=== PATIENT | female | born 1965 | race Caucasian/White ===

== ENCOUNTER 2016-03-19 10:57 | Emergency (ER) | payer BC ==
[~2016-03-19] VITALS: Ht 162.6 cm; Wt 100.8 kg
[~2016-03-19 10:57] MED LIST: ACET-1256 PO; CLB200 PO; ESCI10TA17 PO; GLIM4TAB2 PO; IBUP-1050 PO; INSU1INJ15 SQ; LIRA18IN INJ; LOSA25TA18 PO; LPR50X PO; LPT20 PO; METF-382 PO; OMEP20CA9 PO
[2016-03-19] MEDS ORDERED: INSU1.2I SC (12:08)
[2016-03-19] MEDS ORDERED: NVLGI/PEN SC (12:08)
[2016-03-19] MEDS ORDERED: ASPIRIN 324 MG CHEW PO STA (12:13)
[2016-03-19 12:25] LABS: BASO % 0.5 %; BASO ABS # 0.06 K/uL (0-0.2); COMPLETE YES; HEMATOCRIT 34.4 % (37-47); IG% 0.3 %; LYMPH % 30.3 %; LYMPH ABS # 3.34 K/uL (1.2-3.4); MEAN CELL VOLUME 76.8 fL (80-100); MEAN CORPUSCULAR HEMOGLOBIN 24.3 pg (25-34); MEAN CORPUSCULAR HGB CONC 31.7 g/dl (32-36); MEAN PLATELET VOLUME 10.2 fL (7.4-10.4); MONO % 7.7 %; NEUT % 60.2 %; PLATELET COUNT 336 K/uL (130-400); RED BLOOD COUNT 4.48 M/uL (4.2-5.4); WHITE BLOOD COUNT 11.04 K/uL (4.8-10.8)
--- NOTE | 2016-03-19 12:27 | DIAGNOSTIC IMAGING REPORT ---
CHEST ONE VIEW PORTABLE CLINICAL HISTORY: cp dyspnea COMPARISON STUDY: 04/22/2015 FINDINGS: The bones soft tissues and hemidiaphragms are normal. The cardiomediastinal silhouette is normal. The lungs are clear. The pulmonary vasculature is normal. IMPRESSION: Negative chest. Electronically signed by: Cordell Mcgregor M.D. 03/19/2016 12:26 PM Dictated Date/Time: 03/19/2016 12:26 PM
[2016-03-19 12:36] LABS: PARTIAL THROMBOPLASTIN RATIO 0.9; PROTHROMBIN TIME (PATIENT) 10.9 SECONDS (9.0-12.0)
[2016-03-19 12:42] LABS: BLOOD UREA NITROGEN 7 mg/dl (7-18); CALCIUM 8.9 mg/dl (8.5-10.1); CARBON DIOXIDE 23 mmol/L (21-32); CREATININE 0.81 mg/dl (0.60-1.20); GLUCOSE 207 mg/dl (70-99)
[2016-03-19 12:47] LABS: CHLORIDE 108 mmol/L (98-107); POTASSIUM 3.9 mmol/L (3.5-5.1); SODIUM 142 mmol/L (136-145)
[2016-03-19 13:37] LABS: PREG INTERNAL NEGATIVE QC NEG CLEAR BACKGROUND; PREG INTERNAL POSITIVE QC POS CONTROL LINE
[2016-03-19] MEDS ORDERED: MoRPHine SULFATE 2 MG/ML CARP IV PRN (14:30)
[2016-03-19] MEDS ORDERED: DiphenhydrAMINE HCL 50 MG/ML VIAL IV PRN (14:30)
[2016-03-19] MEDS ORDERED: ZOLPIDEM TARTRATE 5 MG TAB PO PRN ×2 (14:30)
[2016-03-19] MEDS ORDERED: GLUCAGON FOR INJ 1 MG VIAL SQ PRN (14:30)
[2016-03-19] MEDS ORDERED: ACETAMINOPHEN 325 MG TAB PO PRN ×2 (14:30)
[2016-03-19] MEDS ORDERED: ONDANSETRON INJ 2 MG/ML 2 ML VIAL IV PRN (14:30)
[2016-03-19] MEDS ORDERED: DEXTROSE 50% 50 ML SYR IV PRN (14:30)
[2016-03-19] MEDS ORDERED: GLUCOSE 10 TABS/TUBE PO PRN (14:30)
[2016-03-19] MEDS ORDERED: GLUCOSE 40% GEL 15 GM TUBE PO PRN (14:30)
[2016-03-19] MEDS ORDERED: PROMETHAZINE HCL INJ 12.5 MG in SODIUM CHLORIDE 0.9% 50ML 50 ML IV PRN (14:30)
[2016-03-19] MEDS ORDERED: MAGNESIUM HYDROXIDE SUSP 30 ML UDC PO PRN (14:30)
[2016-03-19] MEDS ORDERED: LORAZEPAM 2 MG/ML 1 ML VIAL IV PRN (14:30)
[2016-03-19] MEDS ORDERED: ALUMINUM/MAGNESIUM/SIMETH (MAALOX MAX) 30 ML UDC PO PRN (14:30)
[2016-03-19] MEDS ORDERED: NITROGLYCERIN 0.4 MG SL PER TAB CHARGE SL PRN (14:30)
[2016-03-19] MEDS ORDERED: IV FLUIDS COMPLETED PRN (14:45)
[2016-03-19] MEDS ORDERED: LORAZEPAM INJ 0.5 MG in SYRINGE 0.75 ML IV PRN (15:15)
[2016-03-19 16:29] VITALS: Ht 162.6 cm; Wt 100.8 kg
[2016-03-19 16:33] VITALS: O2SAT 98
[2016-03-19 16:59] VITALS: BP 113/76; PULSE 64; TEMP 36.7
[2016-03-19 17:06] LABS: INFLUENZA A PCR Neg for Influ A (NEG); INFLUENZA B PCR Neg for Influ B (NEG)
[2016-03-19] MEDS: INSULIN ASPART 100 UNITS/ML 3 ML PEN SC SCH ×2 (17:51→21:00)
--- NOTE | 2016-03-19 19:09 | EMERGENCY ROOM VISIT NOTE ---
History Report prepared by Antoine: Martha Uribe Under the Supervision of: Dr. Ilia Carcamo M.D. First contact with patient: 11:59 Chief Complaint: DIZZY Stated Complaint: DIZZY Nursing Triage Summary: got dizzy and diaphoretic this am while getting ready for green party. now feels better, has not eaten yet today blood sugars have been elevated and has been put on new medications for this. states she has had a cold and sinus congestion for a month and woke with ear pain two nights ago. History of Present Illness The patient is a 50 year old female who presents to the Emergency Room with complaints of an episode of lightheadedness that occurred this morning. The patient states that she woke up early at around 5:30AM to get ready for a [employer] green party and her lightheadedness began then. She also was sweaty at that time. She did not have anything to eat prior to the start of her symptoms. She notes that her lightheadedness was worsening throughout the morning but is now improved. The patient notes that she has had intermittent lightheadedness recently, which mostly occurs when she stands up after bending over. She did not have any shortness of breath or chest pain when her symptoms began this morning. Upon arrival to the ED, she developed intermittent chest tightness and burning. She has had this before but usually attributes it to anxiety. Currently , she does not have any chest discomfort. 2 days ago, the patient woke up with sharp pain in her right ear which went away in seconds and has not returned since. The patient notes that she has chronic leg swelling. She currently has a lingering cough from a cold that she developed a month ago but denies other cold -like symptoms. She occasionally has some shortness of breath with going up and down stairs which is not a new issue for her. The patient is diabetic and her blood sugar this morning was in the 290s. Her sugars have been high recently and she notes that she was recently put on 2 new injections for her elevated blood sugars. The patient had an abnormal stress test over 10 years ago but had an unrevealing cardiac catheterization.She does not have a history of high cholesterol. She does have hypertension which she is treated for. Denies fever, black or bloody stools, urinary symptoms, or other complaints. The patient's father has history of heart disease, which began in his 40s and ultimately ended his life at age 68. Source of History: patient Onset: this morning Position: other (global) Quality: other (lightheadedness) Timing: other (episodic) Associated Symptoms: + chest pain (burning/tightness, intermittent), + cough , No fevers, No hematochezia, No melena, No urinary symptoms Note: Other symptoms: sweating Review of Systems See HPI for pertinent positives & negatives. A total of 10 systems reviewed and were otherwise negative. Past Medical & Surgical Medical Problems: (1) Diab Kitty Wo Compl, Type Ii Or Unspec Type, Not Uncntrld (2) Dizziness (3) Esophageal Reflux (4) Hypertension Nos (5) SVT (supraventricular tachycardia) (6) Uncontrolled blood glucose Surgical Problems: (1) History of delivery (2) History of cholecystectomy (3) History of tonsillectomy (4) History of tubal ligation (5) Status post breast reduction Family History Cancer Diabetes mellitus Gallbladder disease Heart disease Hypertension Social History Smoking Status: Never Smoker Marital Status: Housing Status: lives with family Occupation Status: employed Current/Historical Medications Scheduled Acetaminophen (Tylenol), 1,500 MG PO DIRECTED Atorvastatin (Atorvastatin Calcium), 20 MG PO QAM Celecoxib (Celebrex), 200 MG PO QAM Escitalopram (Lexapro), 10 MG PO DAILY Glimepiride (Glimepiride), 2 MG PO DAILY Insulin Aspart (Novolog Flexpen), 10 UNITS SC DAILY Insulin Glargine (Toujeo Solostar), 53 UNITS SC HS Losartan Potassium (Cozaar), 25 MG PO DAILY Metformin Ext Rel (Glucophage Ext Rel), 1,000 MG PO BID Metoprolol Tartrate (Metoprolol Tartrate), 50 MG PO BID Omeprazole (Prilosec), 20 MG PO DAILY Scheduled PRN Ibuprofen (Advil), 800 MG PO Q6 PRN for Pain Allergies Coded Allergies: No Known Allergies (Verified , 03/19/16) Physical Exam Vital Signs Date Time Temp Pulse Resp B/P Pulse Ox O2 Delivery O2 Flow Rate FiO2 03/19/16 13:51 85 20 129/73 99 Room Air 03/19/16 12:17 98 Room Air 03/19/16 12:05 75 20 157/97 73 Room Air 03/19/16 11:37 67 03/19/16 11:02 36.6 63 20 157/97 98 Room Air Physical Exam Constitutional: Vital signs reviewed. Eyes: Pupils are equal round reactive to light. Conjunctiva are noninjected. ENT: Pharynx is clear without erythema or exudate. Mucous membranes are moist. Neck supple without meningeal signs. Respiratory: Clear to auscultation bilaterally. Breath sounds are equal bilaterally. Cardiovascular: Regular rate and rhythm. No rubs or gallops. GI: Soft, nondistended and nontender. Bowel sounds are present. Musculoskeletal: No peripheral edema. No lower extremity tenderness. Integumentary: No cyanosis. Neurological: The patient is awake and alert. No focal deficits. Psychiatric: Normal affect. Medical Decision & Procedures ER Provider Diagnostic Interpretation: X-ray results as stated below per interpretation by me and the radiologist: CHEST ONE VIEW PORTABLE CLINICAL HISTORY: cp dyspnea COMPARISON STUDY: 04/22/2015 FINDINGS: The bones soft tissues and hemidiaphragms are normal. The cardiomediastinal silhouette is normal. The lungs are clear. The pulmonary vasculature is normal. IMPRESSION: Negative chest. Electronically signed by: Cordell Mcgregor M.D. 03/19/2016 12:26 PM Dictated Date/Time: 03/19/2016 12:26 PM Laboratory Results 03/19/16 12:10 Red Blood Count 4.48, Mean Corpuscular Volume 76.8, Mean Corpuscular Hemoglobin 24.3, Mean Corpuscular Hemoglobin Concent 31.7, Mean Platelet Volume 10.2, Neutrophils (%) (Auto) 60.2, Lymphocytes (%) (Auto) 30.3, Monocytes (%) (Auto) 7.7, Eosinophils (%) (Auto) 1.0, Basophils (%) (Auto) 0.5, Neutrophils # (Auto) 6.65, Lymphocytes # (Auto) 3.34, Monocytes # (Auto) 0.85, Eosinophils # (Auto) 0.11, Basophils # (Auto) 0.06 03/19/16 12:10 Test 03/19/16 12:10 03/19/16 12:25 03/19/16 12:40 03/19/16 14:20 White Blood Count 11.04 K/uL (4.8-10.8) Red Blood Count 4.48 M/uL (4.2-5.4) Hemoglobin 10.9 g/dL (12.0-16.0) Hematocrit 34.4 % (37-47) Mean Corpuscular Volume 76.8 fL (80-100) Mean Corpuscular Hemoglobin 24.3 pg (25-34) Mean Corpuscular Hemoglobin Concent 31.7 g/dl (32-36) Platelet Count 336 K/uL (130-400) Mean Platelet Volume 10.2 fL (7.4-10.4) Neutrophils (%) (Auto) 60.2 % Lymphocytes (%) (Auto) 30.3 % Monocytes (%) (Auto) 7.7 % Eosinophils (%) (Auto) 1.0 % Basophils (%) (Auto) 0.5 % Neutrophils # (Auto) 6.65 K/uL (1.4-6.5) Lymphocytes # (Auto) 3.34 K/uL (1.2-3.4) Monocytes # (Auto) 0.85 K/uL (0.11-0.59) Eosinophils # (Auto) 0.11 K/uL (0-0.5) Basophils # (Auto) 0.06 K/uL (0-0.2) RDW Standard Deviation 47.4 fL (36.4-46.3) RDW Coefficient of Variation 17.1 % (11.5-14.5) Immature Granulocyte % (Auto) 0.3 % Immature Granulocyte # (Auto) 0.03 K/uL (0.00-0.02) Prothrombin Time 10.9 SECONDS (9.0-12.0) Prothromb Time International Ratio 1.0 (0.9-1.1) Activated Partial Thromboplast Time 23.9 SECONDS (21.0-31.0) Partial Thromboplastin Ratio 0.9 Anion Gap 11.0 mmol/L (3-11) Est Creatinine Clear Calc Drug Dose 99.3 ml/min Estimated GFR () 99.5 Estimated GFR (Non- 85.9 BUN/Creatinine Ratio 8.0 (10-20) Calcium Level 8.9 mg/dl (8.5-10.1) Total Creatine Kinase 90 U/L (26-192) Creatine Kinase MB 1.8 ng/ml (0.5-3.6) Troponin I < 0.015 ng/ml (0-0.045) Bedside Troponin I 0.000 ng/ml (0-0.045) Human Chorionic Gonadotropin, Qual NEG (NEG) Influenza Type A (RT-PCR) Neg for Influ A (NEG) Influenza Type A Antigen Neg for Influ A (NEG) Influenza Type B Antigen Neg for Influ B (NEG) Influenza Type B (RT-PCR) Neg for Influ B (NEG) Test 03/19/16 14:26 Creatine Kinase MB Ratio (0-3.0) Laboratory results as reviewed by me. Medications Administered Medications (Trade) Dose Ordered Sig/Chadd Route Start Time Stop Time Status Last Admin Dose Admin Aspirin (Aspirin Chew) 324 mg NOW STAT PO 03/19/16 12:13 03/19/16 12:14 DC 03/19/16 13:15 324 MG ECG Indication: other (lightheadedness) Rate (beats per minute): 61 Rhythm: normal sinus Findings: no acute ischemic change, no ectopy ED Course 1203: The patient was evaluated in room C1. A complete history and physical exam was performed. 1213: Ordered Aspirin 324 mg PO. 1325: I reassessed the patient and updated her on results. I specifically talked to her about her anemia - she has not noticed any rectal bleeding or black stools or heavy periods. She states that she rarely gets menstrual periods. She says that she is still lightheaded and she has noticed over the past several months that she has been fatigued recently. I discussed the treatment plan and she was agreeable. 1348: I discussed the case with Dr. Pierre - [facility] Hospitalist. The patient will be evaluated for further management. Medical Decision This is a 50-year-old female who presents with chest pain and lightheadedness. Differential diagnosis includes unstable angina, VT, metabolic derangement, anemia, dehydration. I did perform a limited focused review of portions of the patient's old chart on the electronic medical record. The patient has had no recent pertinent visits to this hospital. I did evaluate the patient as noted above. The patient is presenting with an episode of significant lightheadedness associated with diaphoresis. She came in to the hospital and developed chest tightness and burning. She does have cardiac risk factors including hypertension, diabetes and a strong family history of heart disease. Currently she is chest pain-free. IV access was established. The patient was placed on a continuous environmental monitoring specialist. The patient was given aspirin. I did order and personally review the patient's 12- lead EKG and chest x-ray as described above. I did order and review the patient 's blood work as noted in the electronic medical record. She is anemic. She denies having any heavy periods and in fact says she has not had a period in a very long time. She also denies any rectal bleeding or melanotic stools. Troponin is negative. I did discuss the test results with the patient. She still feels slightly lightheaded but denies having any chest pain. I did recommend hospitalization for repeat cardiac enzymes and further workup. I did discuss case with the hospitalist and case technician. Consults Time Called: 1325 Consulting Physician: Dr. Ignacio Christianson [facility] Hospitalist Returned Call: 1348 I discussed the case with him. The patient will be evaluated for further management. Impression Primary Impression: Dizziness Additional Impressions: Acute chest pain Anemia Scribe Attestation The scribe's documentation has been prepared under my direct and personally reviewed by me in its entirety. I confirm that the note above accurately reflects all work, treatment, procedures, and medical decision making performed by me. Departure Information Dispostion Being Evaluated By Hospitalist Referrals Jonny Beal M.D. (PCP) Patient Instructions [facility] Problem Qualifiers Additional Impressions: Anemia Anemia type: unspecified type Qualified Codes: D64.9 - Anemia, unspecified
--- NOTE | 2016-03-19 19:34 | History and Physical ---
History & Physical Date & Time of Service: Mar 19, 2016 at 19:16 Chief Complaint: Dizziness, Uncontrolled Blood Pressure Primary Care Physician: Jonny Beal M.D. History of Present Illness Source: patient, spouse The patient is a 50-year-old female who presents to the emergency department with complaint of acute onset of lightheadedness and generalized sweats that gradually worsened during the morning and has been slowly improving since that time. The lightheadedness was also associated with orthostasis. When she arrived in emergency department she developed acute onset of chest pain and shortness of breath, both of which were new symptoms compared to her presenting symptoms early in the morning. She does notice shortness of breath occasionally going up and down steps. Her blood sugars have been more elevated into the 200s recently , whereas before they had been in the low to mid 100s. She does have a history of a negative stress test over 10 years ago, and had a negative cardiac catheterization at that time as well. Family history is significant for her father having heart disease in his 40s and he from heart disease at age 68. Past Medical/Surgical History Medical Problems: (1) Diab Kitty Wo Compl, Type Ii Or Unspec Type, Not Uncntrld Status: Chronic (2) Esophageal Reflux Status: Chronic (3) Hypertension Nos Status: Chronic (4) SVT (supraventricular tachycardia) Status: Resolved Surgical Problems: (1) History of cholecystectomy Status: Resolved (2) History of tonsillectomy Status: Resolved (3) History of tubal ligation Status: Resolved Family History Cancer Diabetes mellitus Gallbladder disease Heart disease Hypertension Social History Smoking Status: Never Smoker Smokeless Tobacco Use: No Alcohol Use: none Drug Use: none Marital Status: Housing status: lives with family Occupational Status: employed Immunizations History of Influenza Vaccine: N/A History of Tetanus Vaccine?: No History of Pneumococcal: No History of Hepatitis B Vaccine: No Multi-Drug Resistant Organisms History of MDRO: No Allergies Coded Allergies: No Known Allergies (Verified , 03/19/16) Home Medications Scheduled Acetaminophen (Tylenol), 1,500 MG PO DIRECTED Atorvastatin (Atorvastatin Calcium), 20 MG PO QAM Celecoxib (Celebrex), 200 MG PO QAM Escitalopram (Lexapro), 10 MG PO DAILY Glimepiride (Glimepiride), 2 MG PO DAILY Insulin Aspart (Novolog Flexpen), 10 UNITS SC DAILY Insulin Glargine (Toujeo Solostar), 53 UNITS SC HS Losartan Potassium (Cozaar), 25 MG PO DAILY Metformin Ext Rel (Glucophage Ext Rel), 1,000 MG PO BID Metoprolol Tartrate (Metoprolol Tartrate), 50 MG PO BID Omeprazole (Prilosec), 20 MG PO DAILY Scheduled PRN Ibuprofen (Advil), 800 MG PO Q6 PRN for Pain Review of Systems The patient denies lower extremity swelling, vision change, hearing change, sore throat, fevers, chills, sweats, weight change, fatigue, nausea, vomiting, abdominal pain, pelvic pain, blood in urine or stool, dysuria, urinary frequency or urgency, lightheadedness, dizziness, headache, memory loss, rash, abnormal bruising or bleeding, imbalance, focal or generalized weakness, numbness or tingling in arms or legs, arthralgias or myalgias, back or neck pain , night sweats. The review of systems is otherwise negative other than for that already noted above, and at least 10 systems have been reviewed. Physical Exam Vital Signs Date Time Temp Pulse Resp B/P Pulse Ox O2 Delivery O2 Flow Rate FiO2 03/19/16 16:59 36.7 64 16 113/76 03/19/16 16:33 98 Room Air 03/19/16 15:16 72 20 128/73 99 03/19/16 13:51 85 20 129/73 99 Room Air 03/19/16 12:17 98 Room Air 03/19/16 12:05 75 20 157/97 73 Room Air 03/19/16 11:37 67 03/19/16 11:02 36.6 63 20 157/97 98 Room Air The patient is awake, well-developed and adequately nourished, alert and oriented 3, normocephalic and atraumatic, lying in bed and in no acute distress. HEENT--PERRL, EOMI, mucous membranes and oropharynx dry. Neck--supple, no JVD or bruits, thyroid normal, trachea midline, no adenopathy. Heart--normal S1 and S2, no extra beats, no murmurs, rubs or gallops. Lungs--decreased breath sounds at the right base that improves after a forceful cough, no respiratory distress, no accessory muscle use. Abdomen--normal bowel sounds and soft, nontender and nondistended, no hernias or masses, no organomegaly. Extremities--no cyanosis, clubbing or edema. There are good distal pulses b/l. Dermatologic--normal skin turgor, normal color, warm and dry, no abnormal lymph nodes, no rash. Neurologic--cranial nerves II through XII grossly intact, motor and sensory examination normal. Rheumatologic--normal range of motion, nontender, muscles and joints. Psychiatric--normal affect. Diagnostics Laboratory Results Results Past 24 Hours Test 03/19/16 12:10 03/19/16 12:25 03/19/16 12:40 03/19/16 14:20 Range/Units White Blood Count 11.04 4.8-10.8 K/uL Red Blood Count 4.48 4.2-5.4 M/uL Hemoglobin 10.9 12.0-16.0 g/dL Hematocrit 34.4 37-47 % Mean Corpuscular Volume 76.8 80-100 fL Mean Corpuscular Hemoglobin 24.3 25-34 pg Mean Corpuscular Hemoglobin Concent 31.7 32-36 g/dl Platelet Count 336 130-400 K/uL Mean Platelet Volume 10.2 7.4-10.4 fL Neutrophils (%) (Auto) 60.2 % Lymphocytes (%) (Auto) 30.3 % Monocytes (%) (Auto) 7.7 % Eosinophils (%) (Auto) 1.0 % Basophils (%) (Auto) 0.5 % Neutrophils # (Auto) 6.65 1.4-6.5 K/uL Lymphocytes # (Auto) 3.34 1.2-3.4 K/uL Monocytes # (Auto) 0.85 0.11-0.59 K/uL Eosinophils # (Auto) 0.11 0-0.5 K/uL Basophils # (Auto) 0.06 0-0.2 K/uL RDW Standard Deviation 47.4 36.4-46.3 fL RDW Coefficient of Variation 17.1 11.5-14.5 % Immature Granulocyte % (Auto) 0.3 % Immature Granulocyte # (Auto) 0.03 0.00-0.02 K/uL Prothrombin Time 10.9 9.0-12.0 SECONDS Prothromb Time International Ratio 1.0 0.9-1.1 Activated Partial Thromboplast Time 23.9 21.0-31.0 SECONDS Partial Thromboplastin Ratio 0.9 Sodium Level 142 136-145 mmol/L Potassium Level 3.9 3.5-5.1 mmol/L Chloride Level 108 98-107 mmol/L Carbon Dioxide Level 23 21-32 mmol/L Anion Gap 11.0 3-11 mmol/L Blood Urea Nitrogen 7 7-18 mg/dl Creatinine 0.81 0.60-1.20 mg/dl Est Creatinine Clear Calc Drug Dose 99.3 ml/min Estimated GFR () 99.5 Estimated GFR (Non- 85.9 BUN/Creatinine Ratio 8.0 10-20 Random Glucose 207 70-99 mg/dl Calcium Level 8.9 8.5-10.1 mg/dl Total Creatine Kinase 90 26-192 U/L Creatine Kinase MB 1.8 0.5-3.6 ng/ml Creatine Kinase MB Ratio 2.0 0-3.0 Troponin I < 0.015 0-0.045 ng/ml Bedside Troponin I 0.000 0-0.045 ng/ml Human Chorionic Gonadotropin, Qual NEG NEG Influenza Type A (RT-PCR) Neg for Influ A NEG Influenza Type A Antigen Neg for Influ A NEG Influenza Type B Antigen Neg for Influ B NEG Influenza Type B (RT-PCR) Neg for Influ B NEG Test 03/19/16 14:26 03/19/16 17:30 Range/Units Creatine Kinase MB Ratio 0-3.0 Bedside Glucose 122 70-90 mg/dl Diagnostic Radiology Patient Name: JIMENA PEREZ Unit Number: [id number] Dictated: 03/19/161225 Transcribed: 03/19/161225 MS Printed Date/Time: [~ rep prt dt]/[~ rep prt tm] [~ rep ct labl] - [~ rep ct ivnm] [facility] [place] [address] Dictated: 03/19/161225 Transcribed: 03/19/16 1226 MS Printed Date/Time: [~ rep prt dt]/[~ rep prt tm] [~ rep ct labl] - [~ rep ct ivnm] [~ rep ct add3]] CHEST ONE VIEW PORTABLE CLINICAL HISTORY: cp dyspnea COMPARISON STUDY: 04/22/2015 FINDINGS: The bones soft tissues and hemidiaphragms are normal. The cardiomediastinal silhouette is normal. The lungs are clear. The pulmonary vasculature is normal. IMPRESSION: Negative chest. Electronically signed by: Cordell Mcgregor M.D. 03/19/2016 12:26 PM Dictated Date/Time: 03/19/2016 12:26 PM The status of this report is Signed. Draft = Not yet reviewed or approved by Radiologist. Signed = Reviewed and approved by Radiologist. <AttendingPhy></AttendingPhy> <FamilyPhy>Jonny Beal M.D.</FamilyPhy> < PrimaryPhy>Jonny Beal M.D.</PrimaryPhy> <UnitNumber>[id number]</UnitNumber> <VisitNumber>[id number]</VisitNumber> <PatientName>JIMENA PEREZ</PatientName> < DateOfBirth>1965</DateOfBirth> <Location>[facility]</Location> <ServiceDate>06/28</ServiceDate> <MNE>ESINDI</MNE> <OrderingPhy>Ilia Carcamo MD</ OrderingPhy> <OrderingPhyMNE>f rep ord dr rivera</OrderingPhyMNE> <DictatingPhyMNE> f rep dict dr rivera</DictatingPhyMNE> <CCListMNE>f rep ct miguel</CCListMNE> < AdmittingPhyMNE>f pt admit dr rivera</AdmittingPhyMNE> <AttendingPhyMNE>f pt attend dr rivera</AttendingPhyMNE> <ConsultingPhyMNE>f pt consult dr rivrea</ConsultingPhyMNE> <FamilyPhyMNE>f pt fam dr rivera</FamilyPhyMNE> <OtherPhyMNE>f pt other dr rivera</OtherPhyMNE> < PrimaryPhyMNE>f pt prim care dr rivera</PrimaryPhyMNE> <ReferringPhyMNE>f pt referring dr rivera</ReferringPhyMNE> EKG EKG shows normal sinus rhythm at 61 bpm, with ST flattening and T-wave inversion in lead 3. Impression Assessment and Plan Lightheadedness/SVT history/hypertension/Precordial chest pain/EKG change in lead 3--the patient will be admitted to the telemetry unit, for serial cardiac enzymes, cardiac rhythm monitoring, and a 2-D echocardiogram with Dopplers. If her workup is otherwise negative, she will need a stress echocardiogram prior to discharge. We will continue metoprolol tartrate 50 mg by mouth twice a day, and losartan 25 mg by mouth daily. Diabetes mellitus--the patient will be placed on Accu-Cheks before meals and at bedtime with NovoLog coverage. Continue glyburide 2 mg by mouth every morning, 2JO Vargas*53 units subcutaneous at bedtime. We will hold metformin 1000 mg by mouth twice a day. Hypercholesterolemia--continue atorvastatin 20 mg by mouth every morning. Depression--continue Lexapro 10 mg by mouth daily. She reports that she's been without this medication for one week, as her physician wanted her to be seen in the office first before the prescription can be renewed. It is possible that her symptoms of lightheadedness may be secondary to being off of this medication for one week. GERD--change omeprazole 20 mg by mouth daily to pantoprazole 40 mg by mouth daily. Pain management--continue Celebrex 200 mg by mouth every morning. Level of Care Telemetry Advanced Directives Existing Advance Directive: No Existing Living Will: No Existing Power of Chief Supply Chain Officer: No Resuscitation Status FULL RESUSCITATION VTE Prophylaxis VTE Risk Assessment Done? Y/N: Yes Risk Level: Low Given or contraindicated: SCD's Social Service Consult None Apply
[2016-03-19 19:58] VITALS: BP 118/78; PULSE 96; TEMP 36.9; O2SAT 98
[2016-03-19] MEDS ORDERED: INSULIN GLARGINE SOLOSTAR 100 UNITS/ML 3 ML PEN SC SCH (21:00)
[2016-03-19 21:13] VITALS: BP 104/69; PULSE 60
[2016-03-19] MEDS: METOPROLOL TARTRATE 50 MG TAB PO SCH (21:15)
[2016-03-19 23:09] LABS: CKMB/CK RATIO 1.7 (0-3.0)
[2016-03-19 23:34] VITALS: BP 103/61; PULSE 55; TEMP 36.6; O2SAT 96
[2016-03-20 04:00] VITALS: BP 122/79; PULSE 75; TEMP 36.7; O2SAT 97
[2016-03-20 06:58] LABS: BASO % 0.5 %; BASO ABS # 0.05 K/uL (0-0.2); COMPLETE YES; EOS % 2.3 %; HEMATOCRIT 32.6 % (37-47); IG% 0.3 %; LYMPH % 29.4 %; LYMPH ABS # 3.07 K/uL (1.2-3.4); MEAN CELL VOLUME 77.3 fL (80-100); MEAN CORPUSCULAR HEMOGLOBIN 23.9 pg (25-34); MEAN PLATELET VOLUME 9.9 fL (7.4-10.4); MONO % 8.3 %; NEUT % 59.2 %; PLATELET COUNT 296 K/uL (130-400); RED BLOOD COUNT 4.22 M/uL (4.2-5.4); WHITE BLOOD COUNT 10.44 K/uL (4.8-10.8)
[2016-03-20 07:13] VITALS: BP 99/63; PULSE 67; TEMP 36.7; O2SAT 96
[2016-03-20 07:24] LABS: BLOOD UREA NITROGEN 7 mg/dl (7-18); CALCIUM 8.3 mg/dl (8.5-10.1); CARBON DIOXIDE 24 mmol/L (21-32); CHLORIDE 107 mmol/L (98-107); CREATININE 0.74 mg/dl (0.60-1.20); GLUCOSE 171 mg/dl (70-99); MAGNESIUM 1.7 mg/dl (1.8-2.4); POTASSIUM 4.1 mmol/L (3.5-5.1); SODIUM 141 mmol/L (136-145)
[2016-03-20 07:29] LABS: CKMB/CK RATIO 1.6 (0-3.0)
[2016-03-20] MEDS ORDERED: GLIMEPIRIDE 2 MG TAB PO SCH (08:00)
[2016-03-20] MEDS: METOPROLOL TARTRATE 50 MG TAB PO SCH (08:01)
[2016-03-20] MEDS: INSULIN ASPART 100 UNITS/ML 3 ML PEN SC SCH ×2 (08:08→12:22)
[2016-03-20] MEDS ORDERED: MAGNESIUM OXIDE 400 MG TAB PO SCH (09:00)
[2016-03-20] MEDS ORDERED: LOSARTAN POTASSIUM 25 MG TAB PO SCH (09:00)
[2016-03-20] MEDS ORDERED: PANTOprazole SOD 40 MG TAB PO SCH (09:00)
[2016-03-20] MEDS ORDERED: ATORVASTATIN 20 MG TAB PO SCH (09:00)
[2016-03-20] MEDS ORDERED: ESCITALOPRAM OXALATE 10 MG TAB PO SCH (09:00)
[2016-03-20] MEDS ORDERED: CeleBREX 200 MG CAP PO SCH (09:00)
--- NOTE | 2016-03-20 12:20 | EXERCISE STRESS ECHO ---
*NOTICE TO RECEIVING [employer] This information is strictly Confidential and protected under [place] law. [place] law prohibits you from making any further disclosure of this information unless further disclosure is expressly permitted by the written consent of the person to whom it pertains or is authorized by law. A general authorization for the release of medical or other information is not sufficient for this purpose. Hospital accepts no responsibility if the information is made available to any other person, INCLUDING THE PATIENT. Interpretation Summary * Name: JIMENA PEREZ Study Date: 03/20/2016 10:17 AM BP: 133/80 mmHg * Patient Location: [facility]\S\N289\S\2 HR: 75 * : 1965 (M/d/yyyy) Gender: Female Height: 64 in * Age: 50 yrs Ethnicity: [place] Weight: 222 lb * Ordering Physician: Kendra Ludwig * Referring Physician: ZORA * Performed By: Destiny Zepeda RDCS * * Reason For Study: CHEST PAIN * BSA: 2.0 m2 * History: CHEST PAIN * -- Conclusions -- * Normal stress echocardiogram at 7 METS and a peak heart rate of 94% maximum predicted. * No ECG changes. * No exercise induced chest pain. * Baseline echocardiogram notes normal left ventricular systolic function. Procedure Details * ECHOEX, CPT #[id number] * A contrast injection of Definity was performed to improve assessment of LV function. * Contrast was injected into an intravenous site in the left arm. * One vial of Definity ultrasound contrast was diluted in normal saline to a total volume of 10 ml. A total of '4' ml of solution was administered during imaging. * Lot # [id number] of Definity utilized for procedure. * Expiration date MAR 01. * The attending nurse who injected the contrast agent was DWAYNE LEÓN RN. Left Ventricle * The left ventricle is normal in size. * There is borderline concentric left ventricular hypertrophy. * Ejection Fraction = 55-60%. * Left ventricular systolic function is normal. * Resting wall motion: Normal. Stress wall motion: Appropriate increase in Left ventricular systolic function and decrease in cavity size. No stress induced segmental wall motion abnormalities. Right Ventricle * The right ventricle is normal size. * The right ventricular systolic function is normal as assessed by tricuspid annular plane systolic excursion (TAPSE) (normal >1.5 cm). Atria * The left atrial size is normal. * Right atrial size is normal. * No ASD detected; PFO is not assessed. Mitral Valve * The mitral valve is grossly normal. * There is no mitral valve stenosis. * Significant mitral regurgitation is absent. Tricuspid Valve * The tricuspid valve is not well visualized, but is grossly normal. * There is no tricuspid stenosis. * Significant tricuspid regurgitation is absent. Aortic Valve * The aortic valve is normal in structure and function. * No hemodynamically significant valvular aortic stenosis. * There is no significant aortic regurgitation. Pulmonic Valve * The pulmonic valve is not well visualized. Great Vessels * The aortic root is normal size. * The pulmonary artery is not well visualized, but is probably normal size. Pericardium * There is no pericardial effusion. Stress Parameters * Normal baseline electrocardiogram. * Stress ECG: No ST changes. No arrhythmias. * Rest heart rate was '75' BPM. * Rest blood pressure was '133/80' * Maximum heart rate achieved was 162 bpm. * Maximum heart rate was 94 % of maximum age-predicted heart rate. * Maximum blood pressure was '199/77' * Total exercise time was '5:01' * Maximum exercise MET level achieved was '7.00' METS * Maximum treadmill speed was '2.50' miles per hour. * Maximum treadmill elevation was '12.00'% grade. * Exercise was terminated due to 'ACHIEVING TARGET HR' MMode 2D Measurements and Calculations IVSd 0.85 cm IVSs 1.2 cm LVIDd 4.4 cm LVIDs 3.3 cm LVPWd 0.77 cm LVPWs 1.4 cm IVS/LVPW 1.1 FS 25.4 % EDV(Teich) 88.5 ml ESV(Teich) 44.0 ml EF(Teich) 50.3 % EDV(cubed) 86.2 ml ESV(cubed) 35.8 ml EF(cubed) 58.5 % % IVS thick 45.0 % % LVPW thick 80.3 % LV mass(C)d 111.4 grams LV mass(C)dI 54.5 grams/m\S\2 LV mass(C)s 142.3 grams LV mass(C)sI 69.6 grams/m\S\2 SV(Teich) 44.5 ml SI(Teich) 21.8 ml/m\S\2 SV(cubed) 50.4 ml SI(cubed) 24.6 ml/m\S\2 Ao root diam 3.3 cm Ao root area 8.5 cm\S\2 LA dimension 3.2 cm LA/Ao 0.97 LVAd ap4 29.9 cm\S\2 LVLd ap4 8.8 cm EDV(MOD-sp4) 84.3 ml EDV(sp4-el) 86.4 ml LVAs ap4 17.4 cm\S\2 LVLs ap4 7.2 cm ESV(MOD-sp4) 34.3 ml ESV(sp4-el) 35.5 ml EF(MOD-sp4) 59.3 % EF(sp4-el) 58.9 % SV(MOD-sp4) 50.0 ml SI(MOD-sp4) 24.4 ml/m\S\2 SV(sp4-el) 50.9 ml SI(sp4-el) 24.9 ml/m\S\2 Doppler Measurements and Calculations MV E max adeline 82.5 cm/sec MV A max adeline 59.7 cm/sec MV E/A 1.4 MV dec time 0.18 sec Ao V2 max 156.7 cm/sec Ao max PG 9.8 mmHg Ao max PG (full) 2.5 mmHg LV V1 max PG 7.4 mmHg LV V1 max 135.7 cm/sec
[2016-03-20] MEDS ORDERED: ESCI10TA17 PO (12:34)
--- NOTE | 2016-03-20 12:53 | Discharge Instructions ---
Discharge Instructions Admission Reason for Admission: Dizziness, Uncontrolled Blood Pressure Discharge Discharge Diagnosis / Problem: Lightheadedness Discharge Goals Goal(s): Decrease discomfort, Improve function, Increase independence Activity Recommendations Activity Limitations: resume your previous activity . Instructions / Follow-Up Instructions / Follow-Up Lightheadedness/Chest Pain: - You chest pain you experienced does not appear to be related to your heart. Your cardiac enzymes were tested and are within normal limits which suggest that there was not damage placed on your heart. - You went through a stress test during admission that was normal and did not suggest problems with your heart. This test did not showed that your heart receives adequate oxygen with physical activity. You did not develop chest pain during the test. This test also shows that your heart pumps blood at a normal amount. - Possibly your symptoms could be related to not having your Lexapro as symptoms from stopping this medication includes dizziness, headache, anxiety, depression, mood swings, insomnia and so forth - You will be given a prescription for Lexapro 10 mg daily for two more weeks. Please follow-up with your family doctor to continue prescription. -- It is important to follow-up for this medication to monitor for any side effects as well as to ensure that the medication is the right fit for you -- This medication can cause suicidal thoughts and please call 911 if you begin to develop these thoughts. -- Common side effects include nausea, vomiting, upset stomach, and drowsiness Anemia: - You blood work shows that your hemoglobin (the part of the cell that carries oxygen) is low. It is currently at 10.1 and we would like to see it around 12 - It is not uncommon to have a lower hemoglobin however anemia can cause weakness, fatigue, shortness of breath, chest pain, and fast heart rate. - It is recommended that you follow-up with your family doctor to obtain iron studies - likely this is an iron deficiency anemia. - You may benefit from starting an iron supplementation. Follow-Up: - Please follow-up with your family doctor in 1 week Current Hospital Diet Patient's current hospital diet: Diabetes Type 1 Diet Discharge Diet Recommended Diet: Diabetes Type 1 Diet Procedures Procedures Performed: 1. Cardiac Stress Test with Echocardiogram and EKG Pending Studies Studies pending at discharge: no Medical Emergencies . Who to Call and When: Medical Emergencies: If at any time you feel your situation is an emergency, please call 911 immediately. . Non-Emergent Contact Non-Emergency issues call your: Primary Care Provider Call Non-Emergent contact if: you have a fever, your pain is not controlled, your pain is worsening, your pain is unusual for you, your pain is concerning you, you have any medication questions . . "Provider Documentation" section prepared by Kendra Ludwig. VTE Core Measure Inpt VTE Proph given/why not?: SCD's
[2016-03-20] MEDS ORDERED: PERFLUTREN LIPID MICROSPHERE (DEFINITY) IV ONE (13:06)
[2016-03-20 13:13] VITALS: BP 99/63; PULSE 67; TEMP 36.7; O2SAT 96
--- NOTE | 2016-03-20 14:01 | Discharge Summary ---
Discharge Summary Admission Date: Mar 19, 2016 at 14:26 Discharge Date: Mar 20, 2016 Discharge Disposition: Home Principal Diagnosis: Non-Cardiac Chest Pain Immunizations: Have You Had Influenza Vaccine: N/A History of Tetanus Vaccine?: No History of Pneumococcal: No History of Hepatitis B Vaccine: No Procedures: 1. Exercise Stress Test * Normal stress echocardiogram at 7 METS and a peak heart rate of 94% maximum predicted. * No ECG changes. * No exercise induced chest pain. * Baseline echocardiogram notes normal left ventricular systolic function. * EF 55-70% Medication Reconciliation Continued Medications: Acetaminophen (Tylenol) 500 Mg Tab 1500 MG PO DIRECTED, TAB Atorvastatin (Atorvastatin Calcium) 20 Mg Tab 20 MG PO QAM Celecoxib (Celebrex) 200 Mg Cap 200 MG PO QAM Escitalopram (Lexapro) 10 Mg Tab 10 MG PO DAILY for 14 Days, #14 TAB (This prescription has been renewed) Glimepiride (Glimepiride) 4 Mg Tab 2 MG PO DAILY for 90 Days, #45 TAB 3 Refills Ibuprofen (Advil) 200 Mg Tab 800 MG PO Q6 PRN for Pain, TAB Insulin Aspart (Novolog Flexpen) 100 Units/Ml Inj 10 UNITS SC DAILY dinner Insulin Glargine (Toujeo Solostar) 300 Unit/Ml Inj 53 UNITS SC HS Losartan Potassium (Cozaar) 25 Mg Tab 25 MG PO DAILY, TAB Metformin Ext Rel (Glucophage Ext Rel) 500 Mg Tab 1000 MG PO BID, TAB Metoprolol Tartrate (Metoprolol Tartrate) 50 Mg Tab 50 MG PO BID Omeprazole (Prilosec) 20 Mg Cap 20 MG PO DAILY, CAP Discharge Exam Review of Systems: Constitutional: + problem reported (lightheadedness resolved), No chills, No fever, No weakness Eyes: No worsening of vision ENT: No nasal symptoms, No sore throat, No trouble swallowing Respiratory: No cough, No shortness of breath Cardiovascular: No chest pain, No palpitations Abdomen: No constipation, No diarrhea, No nausea, No pain, No vomiting Musculoskeletal: No calf pain, No swelling Genitourinary - Female: No dysuria Neurologic: No balance problems, No numbness/tingling, No vertigo, No weakness Psychiatric: + anxiety Hematologic / Lymphatic: No abnormal bleeding/bruising, No clotting problems Integumentary: No rash Physical Exam: General Appearance: WD/WN, no apparent distress, + obese Eyes: PERRL, sclerae normal ENT: hearing grossly normal Neck: supple, no JVD, trachea midline Respiratory/Chest: lungs clear, normal breath sounds, no respiratory distress, no accessory muscle use Cardiovascular: regular rate, rhythm, no gallop, no murmur Abdomen / GI: normal bowel sounds, non tender, soft Extremities: no calf tenderness, no pedal edema Neurologic/Psychiatric: alert, oriented x 3 Skin: normal color, warm/dry, no rash Hospital Course ADMISSION: The patient is a 50-year-old female who presents to the emergency department with complaint of acute onset of lightheadedness and generalized sweats that gradually worsened during the morning and has been slowly improving since that time. The lightheadedness was also associated with orthostasis. When she arrived in emergency department she developed acute onset of chest pain and shortness of breath, both of which were new symptoms compared to her presenting symptoms early in the morning. She does notice shortness of breath occasionally going up and down steps. Her blood sugars have been more elevated into the 200s recently , whereas before they had been in the low to mid 100s. She does have a history of a negative stress test over 10 years ago, and had a negative cardiac catheterization at that time as well. Family history is significant for her father having heart disease in his 40s and he from heart disease at age 68. HOSPITAL COURSE: Ms. Watts was admitted to telemetry for rhythm monitoring and ACS rule out. Serial cardiac enzymes performed were negative and found to be < 0.015. EKG revealed sinus bradycardia with the only appreciated abnormality was an inverted T wave in Lead V1. She underwent exercise stress testing that was unremarkable for ischemic changes. She did not experience chest pain during the procedure and no EKG abnormalities appreciated. Suspicion is these symptoms may be just a transient findings or the possibility of abrupt cessation of Lexapro. Per patient she has been on Lexapro for years but ran out of the prescription approximately one week ago. She reports that she was instructed to follow-up with her PCP before further prescriptions can be given. She states she has not been compliant with office follow-up. Home medications were resumed as previously prescribed without alterations of dosages or new additional medications prescribed. She was discharged with a renewed prescription for Lexapro 10 mg daily x 14 days. Expressed the importance of following up with PCP about this medication to continue monitoring for effectiveness and any adverse side effects. Patient is mildly anemic on labs and instructed to discuss with with her PCP. Possible iron studies may be beneficial as it appears to be a mildly microcytic anemia and may benefit from iron supplementation. As anemia cause produce the symptoms she is complaining about the acute nature favors a possible Lexapro withdrawal effect. She is stable without acute complaints and is optimal for discharge home with PCP follow-up. Patient is interested in new PCP establishment here in [place] as she follows with the diabetes clinic near the hospital. Total Time Spent: Greater than 30 minutes This includes examination of the patient, discharge planning, medication reconciliation, and communication with other providers. Discharge Instructions Please refer to the electronic Patient Visit Report (Discharge Instructions) for additional information. Additional Copies To Jonny Beal M.D.
== END 2016-03-20 13:34 | disposition home or self-care (01) ==
LOC: ENRESERVDT → ENRESERVTM → EDBD 10:57 → C.EDC 10:58 → C.MED 14:26
PROVIDERS: ADMIT Hospitalist; ATTEND Internal Medicine
DX: R07.89 Other chest pain (principal); D50.9 Iron deficiency anemia, unspecified; R42 Dizziness and giddiness; R61 Generalized hyperhidrosis; R00.1 Bradycardia, unspecified; K21.9 Gastro-esophageal reflux disease without esophagitis; E11.9 Type 2 diabetes mellitus without complications; F32.9 Major depressive disorder, single episode, unspecified; E78.00 Pure hypercholesterolemia, unspecified; I10 Essential (primary) hypertension; Z79.4 Long term (current) use of insulin; Z90.49 Acquired absence of other specified parts of digestive tract; Z83.3 Family history of diabetes mellitus; Z82.49 Family history of ischemic heart disease and other diseases of the circulatory system

== ENCOUNTER → 2016-05-01 | Outpatient (CLI) | payer BC ==
[~2016-05-01] MED LIST changes: +INSU1.2I SC; -INSU1INJ15 SQ; -LIRA18IN INJ; +NVLGI/PEN SC
[2016-05-01 18:29] LABS: ESTIMATED AVERAGE GLUCOSE 232 mg/dl; HA1C FLAG Normal (Normal)
== END | disposition home or self-care (01) ==
LOC: C.LABPBG 13:07
PROVIDERS: ATTEND Neuromusculoskeletal Medicine & OMM
DX: E11.65 Type 2 diabetes mellitus with hyperglycemia (principal)

== ENCOUNTER → 2016-10-24 | Outpatient (CLI) | payer BC ==
--- NOTE | 2016-11-13 09:20 | CODING QUERY MEDICAL NECESSITY ---
CQSUPPORTING DIAGNOSIS NEEDED A supporting diagnosis is required for the test/procedure performed on this patient in order for us to be reimbursed by the patient's insurance. Please provide a supporting diagnosis for the following test/procedure listed below next to the test name along with your signature. *If there is no additional diagnosis for this patient that would support the following test/procedure please document that below next to the test/procedure. Test(s)/Procedure(s) that require a supporting diagnosis: DOS 10/24/16 VITAMIN D TEST ORDERED BY FRANCY PELLETIER Provider Signature: Date: Thank you Karen Carr Health Information Management Once completed, please kindly fax back to [phone] For questions please call [phone]
== END | disposition home or self-care (01) ==
LOC: C.LABPBG 07:44
PROVIDERS: ATTEND Physician Assistant
DX: R53.83 Other fatigue (principal); Z13.21 Encounter for screening for nutritional disorder

== ENCOUNTER → 2016-11-20 | Outpatient (CLI) | payer BC ==
[2016-11-20 12:00] LABS: ALT/SGPT 19 U/L (12-78); AST/SGOT 22 U/L (15-37); BLOOD UREA NITROGEN 11 mg/dl (7-18); BUN/CREATININE RATIO 14.2 (10-20); CALCIUM 8.7 mg/dl (8.5-10.1); CARBON DIOXIDE 20 mmol/L (21-32); CHLORIDE 109 mmol/L (98-107); CHOLESTEROL 170 mg/dl (0-200); CREATININE 0.77 mg/dl (0.60-1.20); GLUCOSE 243 mg/dl (70-99); POTASSIUM 3.9 mmol/L (3.5-5.1); SODIUM 139 mmol/L (136-145)
[2016-11-20 12:04] LABS: ALB/GLOB RATIO 0.7 (0.9-2); ALKALINE PHOSPHATASE 64 U/L (45-117); CHOLESTEROL/HDL RATIO 2.8; HDL CHOLESTEROL 61 mg/dl; LDL CHOLESTEROL CALCULATED 87 mg/dl; TRIGLYCERIDES 108 mg/dl (0-150); VERY LOW DENSITY LIPOPROT CALC 22 mg/dl
[2016-11-20 12:23] LABS: RATIO 26.1 mcg/mg (0-30.0)
[2016-11-20 12:35] LABS: ESTIMATED AVERAGE GLUCOSE 252 mg/dl; HA1C FLAG Normal (Normal)
== END | disposition home or self-care (01) ==
LOC: C.LABPBG 07:31
PROVIDERS: ATTEND Family Medicine
DX: E11.65 Type 2 diabetes mellitus with hyperglycemia (principal)

== ENCOUNTER → 2016-11-29 | Outpatient (CLI) | payer BC ==
[2016-11-29 12:23] LABS: HEMATOCRIT 34.8 % (37-47); MEAN CORPUSCULAR HEMOGLOBIN 23.3 pg (25-34); PLATELET COUNT 419 K/uL (130-400); RED BLOOD COUNT 4.64 M/uL (4.2-5.4); WHITE BLOOD COUNT 13.06 K/uL (4.8-10.8)
[2016-11-29 12:53] LABS: PREG INTERNAL NEGATIVE QC NEG CLEAR BACKGROUND; PREG INTERNAL POSITIVE QC POS CONTROL LINE
== END | disposition home or self-care (01) ==
LOC: C.LAB1850 11:17
PROVIDERS: ATTEND Physician Assistant
DX: N94.10 Unspecified dyspareunia (principal); N92.0 Excessive and frequent menstruation with regular cycle

== ENCOUNTER → 2016-11-29 | Outpatient (CLI) | payer BC ==
--- NOTE | 2016-11-29 12:30 | DIAGNOSTIC IMAGING REPORT ---
THYROID ULTRASONOGRAPHY CLINICAL HISTORY: R68.89 Throat [id number] COMPARISON STUDY: None FINDINGS: : The right with the thyroid measures 59 x 18 x 25 mm. Left lobe measures 36 x 9 x 11 mm. There is a multinodular gland present. On the right, there is a fairly cystic 23 x 18 x 13 mm nodule. There is a second cystic 21 x 11 x 16 mm right lobe nodule. There is a 10 x 10 x 6 mm cystic posterior thyroid nodule. There is an ill-defined upper pole solid nodule measuring 13 x 6 x 10 mm. This is relatively isoechoic. No calcifications are present within this nodule. On the left there is a predominantly cystic 9 x 7 x 5 mm nodule. IMPRESSION: Multinodular thyroid gland as described above. There are no nodules deemed to have particularly suspicious ultrasound characteristics. Electronically signed by: Nawaf Willis M.D. 11/29/2016 12:29 PM Dictated Date/Time: 11/29/2016 12:25 PM
== END | disposition home or self-care (01) ==
LOC: C.ULTR 11:42
PROVIDERS: ATTEND Family Medicine
DX: R68.89 Other general symptoms and signs (principal); E04.2 Nontoxic multinodular goiter

== ENCOUNTER → 2016-11-29 | Outpatient (CLI) | payer BC | END | disposition home or self-care (01) | LOC: C.PAPS 14:14 | PROVIDERS: ATTEND Physician Assistant | DX: Z12.4 Encounter for screening for malignant neoplasm of cervix (principal) ==

== ENCOUNTER → 2016-12-20 | Outpatient (CLI) | payer BC ==
[~2016-12-20] MED LIST changes: +GADAVIST IV PRN
--- NOTE | 2016-12-20 08:01 | DIAGNOSTIC IMAGING REPORT ---
BRAIN COMBO FOR IAC CLINICAL HISTORY: DIZZINESS *W/IAC'S* mental status change TECHNIQUE: Multiaxial MRI acquisition with attention to the internal artery canals COMPARISON STUDY: None FINDINGS: Signal characteristics the cerebellar as well as cerebral hemispheres are unremarkable. Ventricular system is midline. There is no evidence for abnormal postcontrast enhancement. Sella and parasellar region are unremarkable. Internal artery canals are symmetric. 7th and 8th nerves are unremarkable in terms of signal characteristics. No abnormal postcontrast enhancement. IMPRESSION: Normal study The above report was generated using voice recognition software. It may contain grammatical, syntax or spelling errors. Electronically signed by: Cordell Mcgregor M.D. 12/20/2016 8:00 AM Dictated Date/Time: 12/20/2016 7:51 AM
== END | disposition home or self-care (01) ==
DX: R42 Dizziness and giddiness (principal)

== ENCOUNTER → 2017-02-21 | Outpatient (CLI) | payer BC ==
[~2017-02-21] MED LIST changes: -GADAVIST IV PRN
[2017-02-21 12:56] LABS: BASO % 0.5 %; BASO ABS # 0.05 K/uL (0-0.2); EOS % 0.9 %; EOS ABS # 0.08 K/uL (0-0.5); HEMATOCRIT 33.8 % (37-47); HEMOGLOBIN 10.4 g/dL (12.0-16.0); IG# 0.02 K/uL (0.00-0.02); LYMPH % 22.5 %; LYMPH ABS # 2.09 K/uL (1.2-3.4); MEAN CELL VOLUME 76.8 fL (80-100); MEAN CORPUSCULAR HEMOGLOBIN 23.6 pg (25-34); MEAN CORPUSCULAR HGB CONC 30.8 g/dl (32-36); MEAN PLATELET VOLUME 9.8 fL (7.4-10.4); MONO ABS # 0.74 K/uL (0.11-0.59); NEUT % 67.9 %; NEUT ABS # 6.31 K/uL (1.4-6.5); PLATELET COUNT 355 K/uL (130-400); RED CELL DISTRIBUTION WIDTH CV 17.1 % (11.5-14.5); RED CELL DISTRIBUTION WIDTH SD 48.1 fL (36.4-46.3); WHITE BLOOD COUNT 9.29 K/uL (4.8-10.8)
[2017-02-21 13:21] LABS: HEMOGLOBIN A1C 9.5 % (4.5-5.6)
[2017-02-21 13:23] LABS: BLOOD UREA NITROGEN 8 mg/dl (7-18); CARBON DIOXIDE 24 mmol/L (21-32); CREATININE 0.68 mg/dl (0.60-1.20); GLUCOSE 202 mg/dl (70-99); POTASSIUM 3.9 mmol/L (3.5-5.1); SODIUM 136 mmol/L (136-145)
[2017-02-21 13:27] LABS: TRANSFERRIN 338 mg/dl (200-360)
== END | disposition home or self-care (01) ==
LOC: C.LABPBG 08:29
PROVIDERS: ATTEND Family Medicine
DX: E55.9 Vitamin D deficiency, unspecified (principal); E11.65 Type 2 diabetes mellitus with hyperglycemia; D64.9 Anemia, unspecified

== ENCOUNTER → 2017-06-20 | Outpatient (CLI) | payer BC ==
[2017-06-20 13:20] LABS: HEMATOCRIT 40.4 % (37-47); HEMOGLOBIN 13.6 g/dL (12.0-16.0); MEAN CELL VOLUME 87.8 fL (80-100); MEAN CORPUSCULAR HEMOGLOBIN 29.6 pg (25-34); MEAN CORPUSCULAR HGB CONC 33.7 g/dl (32-36); MEAN PLATELET VOLUME 10.5 fL (7.4-10.4); PLATELET COUNT 299 K/uL (130-400); RED CELL DISTRIBUTION WIDTH CV 14.3 % (11.5-14.5); RED CELL DISTRIBUTION WIDTH SD 45.9 fL (36.4-46.3); WHITE BLOOD COUNT 10.62 K/uL (4.8-10.8)
[2017-06-20 14:11] LABS: ALBUMIN 3.3 gm/dl (3.4-5.0); ALT/SGPT 24 U/L (12-78); AST/SGOT 22 U/L (15-37); BLOOD UREA NITROGEN 10 mg/dl (7-18); CALCIUM 8.6 mg/dl (8.5-10.1); CARBON DIOXIDE 21 mmol/L (21-32); CHOLESTEROL 149 mg/dl (0-200); CREATININE 0.73 mg/dl (0.60-1.20); GLUCOSE 171 mg/dl (70-99); SODIUM 136 mmol/L (136-145)
[2017-06-20 14:12] LABS: HEMOGLOBIN A1C 9.7 % (4.5-5.6)
[2017-06-20 14:16] LABS: ALKALINE PHOSPHATASE 62 U/L (45-117); LDL CHOLESTEROL CALCULATED 76 mg/dl; TOTAL PROTEIN 8.2 gm/dl (6.4-8.2)
== END | disposition home or self-care (01) ==
LOC: C.LABPBG 08:45
PROVIDERS: ATTEND Family Medicine
DX: I10 Essential (primary) hypertension (principal); E11.65 Type 2 diabetes mellitus with hyperglycemia; D50.9 Iron deficiency anemia, unspecified; M79.606 Pain in leg, unspecified

== ENCOUNTER 2020-11-08 10:15 | Observation (INO) ==
--- NOTE | 2020-11-08 12:31 | Emergency Department Note ---
History of Present Illness General Chief complaint: Chest Pain Stated complaint: CHEST PAINS,NAUSEA Time Seen by Provider: 11/08/20 12:16 Source: patient History of Present Illness Provider complaint: Chest pain Onset (ago): hour(s) Location: chest and left Radiation: non-radiation Pain Consistency: + intermittent Maximum Pain Intensity: 5 Quality: + other (Pressure) Relieved By: + none Exacerbated By: + none Associated symptoms: + diaphoresis and + nausea/vomiting; no cough, no fever/chills or no shortness of breath This is a 55-year-old female who presents with chest pain. The patient states it started at work at 830 today. 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 She was not exerting herself. She describes the pain as a pressure. It does not radiate to her arms, back or neck. It is associated with nausea and vomiting as well as diaphoresis. He also states that she had one episode of diarrhea when she came to the emergency department. She denies any shortness of breath. She has had no leg swelling or pain other than her arthritis. She denies any recent immobilization. She does state that she had a cardiac catheterization about 20 years ago for chest pain and it was unremarkable. She had the catheterization because she had an abnormal stress test. She does have a strong family history of cardiac disease with her brother having a heart attack in his 50s. He also had a pulmonary embolism but this was after a motorcycle accident. Her mother also had heart attacks and strokes in her 60s and had a pulmonary embolism as well but it is unclear if this was precipitated by anything. Her father had strokes and heart attacks in his 60s as well. The patient is not a smoker. She does have a history of hypertension, high cholesterol and diabetes. She denies any fever, cough or cold symptoms or abdominal pain. She does not take hormone replacement therapy. She has no urinary symptoms. Home Medications Medication Instructions Recorded Confirmed Type cholecalciferol (vitamin D3) 50 2,000 units PO DAILY #30 tab 02/19/19 11/08/20 Rx mcg (2,000 unit) tablet aspirin 81 mg tablet,delayed 81 mg PO DAILY #30 tab 12/02/19 11/08/20 Rx release (Adult Low Dose Aspirin) metoprolol tartrate 25 mg tablet 25 mg PO DAILY #90 tab 03/24/20 11/08/20 Rx exenatide microspheres 2 mg/0.85 2 mg SQ Q7D #13.2 ml 04/08/20 11/08/20 Rx mL subcutaneous auto-injector ([employer] [place]) celecoxib 200 mg capsule 200 mg PO DAILY #90 cap 08/04/20 11/08/20 Rx pantoprazole 40 mg tablet,delayed 40 mg PO DAILY #90 tab 08/30/20 11/08/20 Rx release venlafaxine 150 mg 150 mg PO DAILY #90 cap 08/30/20 11/08/20 Rx capsule,extended release 24 hr losartan 25 mg tablet 25 mg PO DAILY #90 tab 09/29/20 11/08/20 Rx pravastatin 10 mg tablet 10 mg PO DAILY #90 tab 09/29/20 11/08/20 Rx mecobalamin (vitamin B12) 5,000 5,000 mcg PO DAILY tab 10/05/20 11/08/20 History mcg disintegrating tablet metformin 500 mg tablet,extended 1,000 mg PO BID #180 tab 11/03/20 11/08/20 Rx release 24 hr ferrous sulfate 325 mg (65 mg 325 mg PO DAILY 11/08/20 11/08/20 History iron) tablet insulin aspart U-100 100 unit/mL 0 unit SQ DAILY 11/08/20 11/08/20 History subcutaneous solution (Novolog U-100 Insulin aspart) Allergies Allergy/AdvReac Type Severity Reaction Status Date / Time No Known Drug Allergies Allergy Verified 10/05/20 07:10 Past Med/Surg History Medical History (Updated 11/08/20 @ 16:48 by Ilia Carcamo MD) Anxiety and depression Arthritis Diabetes type 2, uncontrolled Dyslipidemia Gastroesophageal reflux disease Robin's thyroiditis Hypertension Hypothyroidism Iron deficiency anemia Multiple thyroid nodules Overweight SVT (supraventricular tachycardia) Type 2 diabetes mellitus, with long-term current use of insulin Vitamin D deficiency Surgical History History of cholecystectomy History of exploratory laparotomy History of tonsillectomy History of tubal ligation Hx of breast reduction, elective Hx of section Family History Father Cardiac disorder Cardiovascular disease Stroke Diabetes Hyperlipidemia Hypertension Mother , June 2020 d/t COVID illness Cardiovascular disease Stroke Diabetes Hyperlipidemia Hypertension Dementia Brother Hypertension Aunt Breast cancer Uncle Prostate cancer Aunt Dementia Uncle Alzheimer disease Denies family history of Ovarian cancer Colorectal cancer Social History Smoking Status: Never smoker Second Hand Exposure: No; Hx Alcohol Use: Yes Hx Substance Use: No Preferred Language: Icelandic Visual Impairment: No Limitations Hearing Ability: Normal Beliefs That Will Affect Care: None marital status: marital status details: two children Current Living Situation: Spouse current occupational status: employed current occupation: [employer] Feels Safe at Home: Yes Childhood Exposure to Second-Hand Smoke: No Diet Comment: regular caffeine: Yes during the past year weight has: remained stable Dental Care, Regularly: No Physical Activity Frequency: 1-2 Times per Week Seatbelt Use: always Sunscreen Use: Yes Review of Systems See HPI for pertinent positives & negatives. and A total of 10 systems reviewed and were otherwise negative Physical Exam Vital Signs Vital Signs - 24 hr 11/08/20 10:28 11/08/20 11:46 11/08/20 12:00 Temperature 36.7 C Temperature Source Temporal Artery Scan Pulse Rate 115 H 105 H 104 H Pulse Rate from SpO2 Sensor 106 H 104 H Respiratory Rate 18 22 26 H Blood Pressure 155/85 H 137/96 139/100 Blood Pressure Mean 108 109 113 Pulse Oximetry 97 95 94 Oxygen Delivery Method Room Air Sepsis Recent Fever Within 48 Hours No Sepsis New/Unexplained Change in Mental Status No Sepsis Action Taken by Nursing No Action Required 11/08/20 12:30 11/08/20 13:00 11/08/20 13:30 Temperature Temperature Source Pulse Rate 106 H 106 H 107 H Pulse Rate from SpO2 Sensor 106 H 106 H 108 H Respiratory Rate 22 23 24 Blood Pressure 126/82 145/94 H 140/84 Blood Pressure Mean 96 111 102 Pulse Oximetry 95 94 95 Oxygen Delivery Method Sepsis Recent Fever Within 48 Hours Sepsis New/Unexplained Change in Mental Status Sepsis Action Taken by Nursing 11/08/20 14:00 11/08/20 14:30 11/08/20 15:00 Temperature Temperature Source Pulse Rate 108 H 111 H 108 H Pulse Rate from SpO2 Sensor 109 H 109 H 108 H Respiratory Rate 21 13 Blood Pressure 117/92 146/94 H 149/93 H Blood Pressure Mean 100 111 111 Pulse Oximetry 95 96 96 Oxygen Delivery Method Sepsis Recent Fever Within 48 Hours Sepsis New/Unexplained Change in Mental Status Sepsis Action Taken by Nursing 11/08/20 15:30 11/08/20 16:00 Temperature Temperature Source Pulse Rate 108 H Pulse Rate from SpO2 Sensor 108 H Respiratory Rate Blood Pressure 153/92 H 160/118 H Blood Pressure Mean 112 132 Pulse Oximetry 97 Oxygen Delivery Method Sepsis Recent Fever Within 48 Hours Sepsis New/Unexplained Change in Mental Status Sepsis Action Taken by Nursing Constitutional: Vital signs reviewed. Eyes: Pupils are equal round reactive to light. Conjunctiva are noninjected. ENT: Pharynx is clear without erythema or exudate. Mucous membranes are moist. Neck supple without meningeal signs. Respiratory: Clear to auscultation bilaterally. Breath sounds are equal bilaterally. Cardiovascular: Tachycardic. Regular rhythm. Heart rate 108. GI: Soft, nondistended and nontender. Bowel sounds are present. Musculoskeletal: No peripheral edema. No lower extremity tenderness. Integumentary: No cyanosis. or jaundice. Neurological: The patient is awake and alert. No focal deficits. Psychiatric: Normal affect. Not anxious appearing. Course Administered Medications Discontinued Medications Al Hydrox/Mg Hydrox/Simethicone (Gi Cocktail Ed Use) 1 dose PO ONE ONE Stop: 11/08/20 15:31 Last Admin: 11/08/20 15:57 Dose: 1 dose Documented by: [id number] Famotidine (Famotidine 20mg/5ml Iv Push) 20 mg IV ONE ONE Stop: 11/08/20 15:31 Last Admin: 11/08/20 15:57 Dose: 20 mg Documented by: [id number] Sodium Chloride (Nss 1000ml) 1,000 mls @ 999 mls/hr IV .Q1H1M ONE Stop: 11/08/20 15:27 Last Infusion: 11/08/20 15:48 Dose: 0 mls/hr Documented by: [id number] Admin: 11/08/20 14:37 Dose: 999 mls/hr Documented by: [id number] Ioversol (Optiray 320 125ml) 119 ml IV ONCE ONE Stop: 11/08/20 13:42 Last Admin: 11/08/20 13:41 Dose: 119 ml Documented by: [id number] Medical Decision Making Differential Diagnosis OK, unstable angina, pulmonary embolism, GERD, pleurisy, anxiety, enteritis Medical Records Attestation: I reviewed the patient's medical records. I did perform a limited focused review of portions of the patient's old chart on the electronic medical record. The patient has had no recent pertinent visits to this hospital. Home Medications Current Medication List: was personally reviewed by me Laboratory Data Attestation: I reviewed the patient's lab results. Result diagrams: 11/08/20 11:48 11/08/20 11:48 Lab Results 11/08/20 11/08/20 11/08/20 Range/Units 11:48 11:48 11:48 WBC 19.95 H (4.8-10.8) K/uL RBC 5.14 (4.2-5.4) M/uL Hgb 16.1 H (12.0-16.0) g/dL Hct 48.0 H (37-47) % MCV 93.4 (80-100) fL MCH 31.3 (25-34) pg MCHC 33.5 (32-36) g/dL RDW Std Deviation 43.5 (36.4-46.3) fL RDW Coeff of Nataliia 12.7 (11.5-14.5) % Plt Count 273 (130-400) K/uL MPV 10.8 H (7.4-10.4) fL Immature Gran % (Auto) 0.4 % Neut % (Auto) 87.1 % Lymph % (Auto) 6.0 % [place] % (Auto) 5.8 % Eos % (Auto) 0.4 % Baso % (Auto) 0.3 % Neut # (Auto) 17.39 H (1.4-6.5) K/uL Lymph # (Auto) 1.19 L (1.2-3.4) K/uL [place] # (Auto) 1.16 H (0.11-0.59) K/uL Eos # (Auto) 0.08 (0-0.5) K/uL Baso # (Auto) 0.05 (0-0.2) K/uL Immature Gran # (Auto) 0.08 H (0.00-0.02) K/uL APTT 24.4 (21.0-31.0) Seconds PTT Ratio 0.9 D-Dimer 670 H* (0-500) ug/L FEU Sodium 137 (136-145) mmol/L Potassium 4.2 (3.5-5.1) mmol/L Chloride 106 (98-107) mmol/L Carbon Dioxide 23 (21-32) mmol/L Anion Gap 9.0 (3-11) BUN 15 (7-18) mg/dl Creatinine 0.89 (0.6-1.2) mg/dl Est Cr Clr Drug Dosing 86.8 ml/min Est GFR ( Amer) 85.8 ml/min Est GFR (Non-Af Amer) 74.0 ml/min BUN/Creatinine Ratio 17.0 (10-20) Glucose 258 H (70-99) mg/dl Calcium 8.9 (8.5-10.1) mg/dl Total Bilirubin 0.6 (0.2-1) mg/dl AST 47 H (15-37) U/L ALT 39 (12-78) U/L Alkaline Phosphatase 90 (45-117) U/L Troponin I < 0.015 (0-0.045) ng/ml Total Protein 8.3 H (6.4-8.2) gm/dl Albumin 3.4 (3.4-5.0) gm/dl Globulin 4.9 H (2.5-4.0) gm/dl Albumin/Globulin Ratio 0.7 L (0.9-2) Lipase 295 (73-393) U/L TSH (0.300-4.500) uIu/ml Urine Color Urine Appearance (Clear) Urine pH (4.5-7.5) Ur Specific [place] (1.000-1.030) Urine Protein (Negative) Urine Glucose (UA) (Negative) Urine Ketones (Negative) Urine Blood (Negative) Urine Nitrite (Negative) Urine Bilirubin (Negative) Urine Urobilinogen (Negative) Ur Leukocyte Esterase (Negative) Urine WBC (Auto) (0-5) /hpf Urine RBC (Auto) (0-4) /hpf U Hyaline Cast (Auto) (0-5) /lpf U Epithel Cells (Auto) (0-5) /lpf Urine Bacteria (Auto) (Negative) COVID-19 Eval Order SARS-CoV-2 (PCR) (Negative) 11/08/20 11/08/20 11/08/20 Range/Units 11:48 13:59 13:59 WBC (4.8-10.8) K/uL RBC (4.2-5.4) M/uL Hgb (12.0-16.0) g/dL Hct (37-47) % MCV (80-100) fL MCH (25-34) pg MCHC (32-36) g/dL RDW Std Deviation (36.4-46.3) fL RDW Coeff of Nataliia (11.5-14.5) % Plt Count (130-400) K/uL MPV (7.4-10.4) fL Immature Gran % (Auto) % Neut % (Auto) % Lymph % (Auto) % [place] % (Auto) % Eos % (Auto) % Baso % (Auto) % Neut # (Auto) (1.4-6.5) K/uL Lymph # (Auto) (1.2-3.4) K/uL [place] # (Auto) (0.11-0.59) K/uL Eos # (Auto) (0-0.5) K/uL Baso # (Auto) (0-0.2) K/uL Immature Gran # (Auto) (0.00-0.02) K/uL APTT (21.0-31.0) Seconds PTT Ratio D-Dimer (0-500) ug/L FEU Sodium (136-145) mmol/L Potassium (3.5-5.1) mmol/L Chloride (98-107) mmol/L Carbon Dioxide (21-32) mmol/L Anion Gap (3-11) BUN (7-18) mg/dl Creatinine (0.6-1.2) mg/dl Est Cr Clr Drug Dosing ml/min Est GFR ( Amer) ml/min Est GFR (Non-Af Amer) ml/min BUN/Creatinine Ratio (10-20) Glucose (70-99) mg/dl Calcium (8.5-10.1) mg/dl Total Bilirubin (0.2-1) mg/dl AST (15-37) U/L ALT (12-78) U/L Alkaline Phosphatase (45-117) U/L Troponin I (0-0.045) ng/ml Total Protein (6.4-8.2) gm/dl Albumin (3.4-5.0) gm/dl Globulin (2.5-4.0) gm/dl Albumin/Globulin Ratio (0.9-2) Lipase (73-393) U/L TSH 1.870 (0.300-4.500) uIu/ml Urine Color Urine Appearance (Clear) Urine pH (4.5-7.5) Ur Specific [place] (1.000-1.030) Urine Protein (Negative) Urine Glucose (UA) (Negative) Urine Ketones (Negative) Urine Blood (Negative) Urine Nitrite (Negative) Urine Bilirubin (Negative) Urine Urobilinogen (Negative) Ur Leukocyte Esterase (Negative) Urine WBC (Auto) (0-5) /hpf Urine RBC (Auto) (0-4) /hpf U Hyaline Cast (Auto) (0-5) /lpf U Epithel Cells (Auto) (0-5) /lpf Urine Bacteria (Auto) (Negative) COVID-19 Eval Order Covid19 at [facility] SARS-CoV-2 (PCR) NEGATIVE (Negative) 11/08/20 Range/Units 14:01 WBC (4.8-10.8) K/uL RBC (4.2-5.4) M/uL Hgb (12.0-16.0) g/dL Hct (37-47) % MCV (80-100) fL MCH (25-34) pg MCHC (32-36) g/dL RDW Std Deviation (36.4-46.3) fL RDW Coeff of Nataliia (11.5-14.5) % Plt Count (130-400) K/uL MPV (7.4-10.4) fL Immature Gran % (Auto) % Neut % (Auto) % Lymph % (Auto) % [place] % (Auto) % Eos % (Auto) % Baso % (Auto) % Neut # (Auto) (1.4-6.5) K/uL Lymph # (Auto) (1.2-3.4) K/uL [place] # (Auto) (0.11-0.59) K/uL Eos # (Auto) (0-0.5) K/uL Baso # (Auto) (0-0.2) K/uL Immature Gran # (Auto) (0.00-0.02) K/uL APTT (21.0-31.0) Seconds PTT Ratio D-Dimer (0-500) ug/L FEU Sodium (136-145) mmol/L Potassium (3.5-5.1) mmol/L Chloride (98-107) mmol/L Carbon Dioxide (21-32) mmol/L Anion Gap (3-11) BUN (7-18) mg/dl Creatinine (0.6-1.2) mg/dl Est Cr Clr Drug Dosing ml/min Est GFR ( Amer) ml/min Est GFR (Non-Af Amer) ml/min BUN/Creatinine Ratio (10-20) Glucose (70-99) mg/dl Calcium (8.5-10.1) mg/dl Total Bilirubin (0.2-1) mg/dl AST (15-37) U/L ALT (12-78) U/L Alkaline Phosphatase (45-117) U/L Troponin I (0-0.045) ng/ml Total Protein (6.4-8.2) gm/dl Albumin (3.4-5.0) gm/dl Globulin (2.5-4.0) gm/dl Albumin/Globulin Ratio (0.9-2) Lipase (73-393) U/L TSH (0.300-4.500) uIu/ml Urine Color Yellow Urine Appearance Clear (Clear) Urine pH 5.0 (4.5-7.5) Ur Specific [place] 1.040 H (1.000-1.030) Urine Protein Trace H (Negative) Urine Glucose (UA) 3+ H (Negative) Urine Ketones 3+ H (Negative) Urine Blood Negative (Negative) Urine Nitrite Negative (Negative) Urine Bilirubin Negative (Negative) Urine Urobilinogen Negative (Negative) Ur Leukocyte Esterase Trace H (Negative) Urine WBC (Auto) 10-30 H (0-5) /hpf Urine RBC (Auto) 0-4 (0-4) /hpf U Hyaline Cast (Auto) 1-5 (0-5) /lpf U Epithel Cells (Auto) 20-30 H (0-5) /lpf Urine Bacteria (Auto) Negative (Negative) COVID-19 Eval Order SARS-CoV-2 (PCR) (Negative) Imaging Data Radiologist's Impression: Chest X-Ray 11/08/20 12:26 SINGLE VIEW CHEST CLINICAL HISTORY: Atypical chest pain. FINDINGS: An AP, portable, upright chest radiograph is compared to study dated 03/19/2016 and correlated with chest CT dated 04/22/2015. The cardiomediastinal silhouette is unremarkable. There is mild bibasilar atelectasis. The lungs and pleural spaces are otherwise clear. No pneumothorax is seen. The bony thorax is grossly intact. IMPRESSION: No active disease in the chest. ACT 112: Negative or not required by law. Electronically signed by: Franky Mcdowell M.D. 11/08/2020 1:14 PM Chest CTA 11/08/20 13:29 CHEST CTA for PULMONARY ARTERIES CT DOSE: HISTORY: Atypical chest pain. TECHNIQUE: Multiaxial CT images of the chest were performed following the intravenous administration of contrast to evaluate the pulmonary arteries. Maximal intensity projection images were also obtained. A dose lowering technique was utilized adhering to the principles of ALARA. COMPARISON STUDY: Chest CTA 04/22/2015. FINDINGS: Normal caliber thoracic aorta with no evidence for dissection. No filling defects within the pulmonary arteries to suggest a pulmonary embolus. No mediastinal or hilar lymphadenopathy. Mild thickening at the distal esophagus. Mild hepatic steatosis. The visualized spleen and adrenal glands are unremarkable. The heart is normal in size. No pleural or pericardial effusions. No suspicious lytic or blastic osseous lesions. The central airways are patent. No focal lung consolidations to suggest pneumonia. IMPRESSION: 1. No evidence for pulmonary embolus. 2. [id number]-gu-wnlpocre circumferential thickening of the distal esophagus. This is nonspecific but could represent an esophagitis. Consider follow-up nonemergent endoscopy for further evaluation. ACT 112: Negative or not required by law. Electronically signed by: Maurizio Sahu M.D. 11/08/2020 2:00 PM Abdomen/Pelvis CT 11/08/20 13:30 CT SCAN OF THE ABDOMEN AND PELVIS WITH IV CONTRAST CLINICAL HISTORY: Generalized abdominal pain. Clinical concern for colitis. COMPARISON STUDY: Abdominal CT dated 11/05/2017. TECHNIQUE: Following the IV administration of 119 cc of Optiray 320, CT scan of the abdomen and pelvis is performed from the lung bases to the proximal femora. Images are reviewed in the axial, sagittal, and coronal planes. IV contrast was administered without complication. A dose lowering technique was utilized adhering to the principles of ALARA. CT DOSE: 2400.62 mGy.cm FINDINGS: Lung bases: The heart is normal in size and without pericardial effusion. The lung bases are clear. There is a small hiatal hernia. Liver: The contrast-enhanced liver is enlarged, measuring 20.1 cm in length. The liver demonstrates diffusely diminished attenuation consistent with hepatic steatosis. There is no intrahepatic biliary ductal dilatation. The hepatic veins and portal veins are patent. Gallbladder: Surgically absent noting clips in the gallbladder fossa. Spleen: Normal in size and attenuation. Pancreas: Unremarkable. Adrenal glands: Unremarkable. Kidneys: The contrast enhanced kidneys are normal in size and without hydronephrosis. The kidneys enhance symmetrically. Abdominal vasculature: The abdominal aorta is normal in course and caliber noting mild atherosclerotic calcification. Bowel: There is laxity of the ventral abdominal wall is diastases of the rectus musculature and protrusion of bowel loops. A ventral hernia contains a tiny knuckle of nonobstructed small bowel as seen on image #[id number]. There is no bowel obstruction. The small bowel loops are minimally distended and fluid-filled. There is also fluid within the right colon. No significant bowel wall thickening or surrounding inflammation is identified. The small bowel and colon are normal in course and caliber. The appendix is well-visualized and normal. Peritoneum: There is no intraperitoneal free air or abdominal ascites. Lymphadenopathy: None. Pelvic viscera: The bladder, uterus, and adnexa are normal as visualized noting small ovarian follicles. Numerous phleboliths are seen in the pelvis. Skeletal structures: There is mild lumbosacral spondylosis. No lytic or blastic lesions are seen. IMPRESSION: 1. There are mildly distended and fluid-filled loops of small bowel. Fluid is also seen within the right colon. This could be seen with a mild nonspecific enterocolitis and clinical correlation will be required. 2. There is no bowel wall thickening or surrounding inflammation. 3. A small ventral hernia contains a knuckle of nonobstructed small bowel. 4. Hepatomegaly and hepatic steatosis. 5. Additional findings as above. ACT 112: Negative or not required by law. Electronically signed by: Franky Mcdowell M.D. 11/08/2020 2:12 PM ECG Data Attestation: I personally reviewed and interpreted this ECG as follows: Indication: + chest pain Rate (beats per minute): 108 Rhythm: + sinus tachycardia ECG [place]: + Normal ECG ST segments: no ST elevation ECG Findings: no PVCs Comparison ECG Date: no prior available MDM Narrative I did evaluate the patient as noted above. The patient is presenting with chest discomfort. She has a very strong family history of cardiac disease with her brother having an OK in his 50s. She is presenting with chest pressure today while at work which has been intermittent all morning. Currently she is chest pain-free. IV access was established. I did place an order for continuous card iac monitoring. The monitor showed sinus tachycardia rate of 108 bpm. I did order and personally review the patient's 12-lead EKG as described above. She has tachycardia without acute ischemia. The patient does state that she has a history of tachycardia and SVT and takes metoprolol for this. She did not miss any doses. I did order and personally reviewed the images of the patient's chest x-ray as described above. There is no evidence of acute process. I did order a urine analysis. She has leukocyte esterase and WBCs without bacteria or nitrites. I did order and review the patient's blood work as noted in the electronic medical record. Her white blood cell count is significant elevated 19.95. She has hemoglobin of 16. Her electrolytes and LFTs are unremarkable other than a AST of 47. Her glucose is elevated to 58. Her troponin is negative. D-dimer is elevated at 670. I did discuss the test results with the patient. She denies having any fevers or any significant abdominal pain. She does state that she had another episode of diarrhea while in the emergency department. After discussion with the patient, I did order a CT of the abdomen and pelvis as well as a CT angiogram of the chest. I did review the images myself as well as the radiology report as described above. She has no evidence of pulmonary embolism. She has what appears to be some fluid in the colon and small bowel. There is no bowel wall thickening or surrounding inflammation. I did treat the patient with normal saline IV. I did discuss the test results with her. She remains slightly tachycardic here but is not having any chest discomfort. I did recommend hospitalization for IV hydration, further evaluation and repeat cardiac biomarkers. I did discuss the case with the case management assistant and the hospitalist was informed. COVID-19 testing was negative. Impression & Plan Acute chest pain, Leukocytosis, Vomiting and diarrhea Discharge Plan Visit Data Chief Complaint: Chest Pain Stated Complaint: CHEST PAINS,NAUSEA ED Provider: Ilia Carcamo Discharge Problem: Acute chest pain, Leukocytosis, Vomiting and diarrhea Patient Disposition: Being Evaluated by Hospitalist Forms Stand Alone Forms: [facility] Prescriptions Prescriptions: No Action cholecalciferol (vitamin D3) 2,000 unit tablet 2,000 units PO DAILY Qty: 30 RF: 0 metoprolol tartrate 25 mg tablet 25 mg PO DAILY Qty: 90 RF: 1 Bydureon BCise 2 mg/0.85 mL auto-injector 2 mg SQ Q7D Qty: 13.2 RF: 3 celecoxib 200 mg capsule 200 mg PO DAILY Qty: 90 RF: 1 pantoprazole 40 mg tablet,delayed release (DR/EC) 40 mg PO DAILY Qty: 90 RF: 1 venlafaxine 150 mg capsule,extended release 24hr 150 mg PO DAILY Qty: 90 RF: 1 pravastatin 10 mg tablet 10 mg PO DAILY Qty: 90 RF: 1 losartan 25 mg tablet 25 mg PO DAILY Qty: 90 RF: 2 metformin 500 mg tablet extended release 24 hr 1,000 mg PO BID Qty: 180 RF: 1 aspirin [Adult Low Dose Aspirin] 81 mg tablet,delayed release (DR/EC) 81 mg PO DAILY Qty: 30 RF: 2 mecobalamin (vitamin B12) 5,000 mcg tablet,disintegrating 5,000 mcg PO DAILY RF: 0 insulin aspart U-100 [Novolog U-100 Insulin aspart] 100 unit/mL solution 0 unit SQ DAILY RF: 0 ferrous sulfate 325 mg (65 mg iron) tablet 325 mg PO DAILY RF: 0 Referrals Referrals: Leslee Metz DO [Primary Care Provider] -
[2020-11-08 12:36] LABS: Basophils # (auto) 0.05 K/uL (0-0.2); Basophils % (auto) 0.3 %; Eosinophils # (auto) 0.08 K/uL (0-0.5); Eosinophils % (auto) 0.4 %; Hemoglobin 16.1 g/dL (12.0-16.0); Immature Granulocytes # (auto) 0.08 K/uL (0.00-0.02); Immature Granulocytes % (auto) 0.4 %; Lymphocytes # (auto) 1.19 K/uL (1.2-3.4); Mean Corpuscular Hemoglobin 31.3 pg (25-34); Mean Corpuscular Hgb Conc 33.5 g/dL (32-36); Mean Corpuscular Volume 93.4 fL (80-100); Mean Platelet Volume 10.8 fL (7.4-10.4); Monocytes # (auto) 1.16 K/uL (0.11-0.59); Monocytes % (auto) 5.8 %; Neutrophils # (auto) 17.39 K/uL (1.4-6.5); Neutrophils % (auto) 87.1 %; Platelet Count 273 K/uL (130-400); RDW Coefficient of Variation 12.7 % (11.5-14.5); RDW Standard Deviation 43.5 fL (36.4-46.3); Red Blood Count 5.14 M/uL (4.2-5.4); White Blood Count 19.95 K/uL (4.8-10.8)
[2020-11-08 12:44] LABS: Alanine Aminotransferase 39 U/L (12-78); Albumin Level 3.4 gm/dl (3.4-5.0); Aspartate Aminotransferase 47 U/L (15-37); Blood Urea Nitrogen 15 mg/dl (7-18); Calcium 8.9 mg/dl (8.5-10.1); Carbon Dioxide 23 mmol/L (21-32); Chloride 106 mmol/L (98-107); Creatinine Clr Calc Pharmacy 86.8 ml/min; Est GFR (African American) 85.8 ml/min; Glucose 258 mg/dl (70-99); Lipase 295 U/L (73-393); Potassium 4.2 mmol/L (3.5-5.1); Sodium 137 mmol/L (136-145)
[2020-11-08 12:48] LABS: Partial Thromboplastin Ratio 0.9; Partial Thromboplastin Time 24.4 Seconds (21.0-31.0)
[2020-11-08 12:49] LABS: Albumin Globulin Ratio 0.7 (0.9-2); Alkaline Phosphatase 90 U/L (45-117); Bilirubin,Total 0.6 mg/dl (0.2-1); Globulin 4.9 gm/dl (2.5-4.0); Total Protein 8.3 gm/dl (6.4-8.2); Troponin I < 0.015 ng/ml (0-0.045)
[2020-11-08 12:57] LABS: D Dimer 670 ug/L FEU (0-500)
--- NOTE | 2020-11-08 13:16 | XRay Report ---
SINGLE VIEW CHEST CLINICAL HISTORY: Atypical chest pain. FINDINGS: An AP, portable, upright chest radiograph is compared to study dated 03/19/2016 and correlate d with chest CT dated 04/22/2015. The cardiomediastinal silhouette is unremarkable. There is mild biba silar atelectasis. The lungs and pleural spaces are otherwise clear. No pneumothorax is seen. The bon y thorax is grossly intact. IMPRESSION: No active disease in the chest. ACT 112: Negative or not required by law. Electronically signed by: Franky Mcdowell M.D. 11/08/2020 1:14 PM
[2020-11-08] MEDS ORDERED: OPTIRAY 320 125ml IV ONE (13:41)
--- NOTE | 2020-11-08 14:01 | CT Scan Report ---
CHEST CTA for PULMONARY ARTERIES CT DOSE: HISTORY: Atypical chest pain. TECHNIQUE: Multiaxial CT images of the chest were performed following the intravenous administration of contrast to evaluate the pulmonary arteries. Maximal intensity projection images were also obtaine d. A dose lowering technique was utilized adhering to the principles of ALARA. COMPARISON STUDY: Chest CTA 04/22/2015. FINDINGS: Normal caliber thoracic aorta with no evidence for dissection. No filling defects within th e pulmonary arteries to suggest a pulmonary embolus. No mediastinal or hilar lymphadenopathy. Mild th ickening at the distal esophagus. Mild hepatic steatosis. The visualized spleen and adrenal glands ar e unremarkable. The heart is normal in size. No pleural or pericardial effusions. No suspicious lytic or blastic osseous lesions. The central airways are patent. No focal lung consolidations to suggest pneumonia. IMPRESSION: 1. No evidence for pulmonary embolus. 2. [id number]-[id number] circumferential thickening of the distal esophagus. This is nonspecific but could represent an esophagitis. Consider follow-up nonemergent endoscopy for further evaluation. ACT 112: Negative or not required by law. Electronically signed by: Maurizio Sahu M.D. 11/08/2020 2:00 PM
--- NOTE | 2020-11-08 14:13 | CT Scan Report ---
CT SCAN OF THE ABDOMEN AND PELVIS WITH IV CONTRAST CLINICAL HISTORY: Generalized abdominal pain. Clinical concern for colitis. COMPARISON STUDY: Abdominal CT dated 11/05/2017. TECHNIQUE: Following the IV administration of 119 cc of Optiray 320, CT scan of the abdomen and pelv is is performed from the lung bases to the proximal femora. Images are reviewed in the axial, sagitta l, and coronal planes. IV contrast was administered without complication. A dose lowering technique w as utilized adhering to the principles of ALARA. CT DOSE: 2400.62 mGy.cm FINDINGS: Lung bases: The heart is normal in size and without pericardial effusion. The lung bases are clear. T here is a small hiatal hernia. Liver: The contrast-enhanced liver is enlarged, measuring 20.1 cm in length. The liver demonstrates d iffusely diminished attenuation consistent with hepatic steatosis. There is no intrahepatic biliary d uctal dilatation. The hepatic veins and portal veins are patent. Gallbladder: Surgically absent noting clips in the gallbladder fossa. Spleen: Normal in size and attenuation. Pancreas: Unremarkable. Adrenal glands: Unremarkable. Kidneys: The contrast enhanced kidneys are normal in size and without hydronephrosis. The kidneys enh ance symmetrically. Abdominal vasculature: The abdominal aorta is normal in course and caliber noting mild atheroscleroti c calcification. Bowel: There is laxity of the ventral abdominal wall is diastases of the rectus musculature and protr usion of bowel loops. A ventral hernia contains a tiny knuckle of nonobstructed small bowel as seen o n image #284. There is no bowel obstruction. The small bowel loops are minimally distended and fluid- filled. There is also fluid within the right colon. No significant bowel wall thickening or surroundi ng inflammation is identified. The small bowel and colon are normal in course and caliber. The append ix is well-visualized and normal. Peritoneum: There is no intraperitoneal free air or abdominal ascites. Lymphadenopathy: None. Pelvic viscera: The bladder, uterus, and adnexa are normal as visualized noting small ovarian follicl es. Numerous phleboliths are seen in the pelvis. Skeletal structures: There is mild lumbosacral spondylosis. No lytic or blastic lesions are seen. IMPRESSION: 1. There are mildly distended and fluid-filled loops of small bowel. Fluid is also seen within the ri ght colon. This could be seen with a mild nonspecific enterocolitis and clinical correlation will be required. 2. There is no bowel wall thickening or surrounding inflammation. 3. A small ventral hernia contains a knuckle of nonobstructed small bowel. 4. Hepatomegaly and hepatic steatosis. 5. Additional findings as above. ACT 112: Negative or not required by law. Electronically signed by: Franky Mcdowell M.D. 11/08/2020 2:12 PM
[2020-11-08] MEDS ORDERED: SODIUM CHLORIDE 0.9% 1000ML 1,000 ML IV ONE ×2 (14:27→15:16)
--- NOTE | 2020-11-08 14:41 | History & Physical Report ---
Date of Service November 08, 2020 Assessment & Plan (1) Enterocolitis: Plan: C. diff PCR and stool culture pending Will defer antibiotics on admission as non-septic Repeat WBC in AM Ondansetron for nausea (2) Leucocytosis: Plan: Suspect from vomiting and enterocolitis as above. Repeat CBC in AM. Patient is not septic therefore will defer antibiotics on admission. Doubtful c. diff as affecting mostly small bowel but would start vancomycin if deteriorating of WBC increasing. (3) Esophageal thickening: Plan: Follow up EGD as outpatient recommended Treatment for GERD as below (4) Gastroesophageal reflux disease: Plan: Continue pantoprazole 40mg PO daily, additional famotidine 20mg IV now and GI cocktail. Consider addition of famotidine on discharge. (5) Chest pain: Plan: Serial troponins Monitor on telemetry Will defer dobutamine stress echo as this was previously abnormal with a normal cardiac catheterization therefore likeliness of another false positive test high given low likelihood pain is cardiac related. Suspect related to her GERD as above (6) Vaginal discharge: Plan: 2 weeks yellow vaginal discharge. Swab ordered for culture. Possible bacterial vaginosis. (7) Ketonuria: Plan: 1L NSS bolus given in ER, will give additional NSS bolus now then LR @ 150ml/hr overnight. (8) Type 2 diabetes mellitus, with long-term current use of insulin: Plan: Patient to manage her own glucose with insulin pump. BSG ACHS. HbA1C 9.0 in Mar, will repeat with AM labs (9) Hypertension: Plan: Continue her usual medications with metoprolol tartrate 25mg PO daily, losartan 25mg PO daily (10) Dyslipidemia: Plan: Continue pravastatin 10mg PO daily Plan: VTE Prophylaxis - None Diet - lactose intolerant due to current diarrhea, heart healthy, T2DM Disposition - observation status to med/tele Admission and Anticipated Discharge Date Admission Date: November 08, 2020 History of Present Illness Chief Complaint: Chest pain Primary Care Provider: DO Hope Llanes Mac is a 55 year old female who presents to the ER with sudden onset generalized illness today with chest pain. She reports feeling well when she woke up this morning around 5:30am although she has been having worsening heartburn for the last 2 days. Current symptoms started around 8:30am while at work. She felt sick to the stomach, nauseous, vomiting, loose brown stool, "w eirdness" and chest pain (although she points mainly to epigastric area). She denies any hematemesis, melena or blood in stool. No shortness of breath or loss of taste or smell. She had not eaten prior to going to work and no take out or unusual food yesterday. She is particularly concerned as she has a strong family history of cardiovascular disease with her father dying aged 66 from a heart attack but had problems since his 20s from cardiovascular disease and her mother had a stroke. Her brother has a history of pulmonary emboli. She reports having similar chest pains before but no diagnosis related to this. It is not worse on exertion. Last stress test "years ago". She has heartburn in addition but feels this chest pain is not like her usual heartburn. Heart cath - 15 years ago also for chest pain reportedly normal. She laos has ongoing palpitations although feels this is a seperate issue but never caught on monitor and not having these today. In the ER CT imaging showed thickening of her distal esophagus and findings consistent with enterocolitis. She was referred to medicine admission and ongoing management of chest pain and enterocolitis. Allergies Allergy/AdvReac Type Severity Reaction Status Date / Time No Known Drug Allergies Allergy Verified 10/05/20 07:10 Home Medications Medication Instructions Recorded Confirmed Type cholecalciferol (vitamin D3) 50 2,000 units PO DAILY #30 tab 02/19/19 11/08/20 Rx mcg (2,000 unit) tablet aspirin 81 mg tablet,delayed 81 mg PO DAILY #30 tab 12/02/19 11/08/20 Rx release (Adult Low Dose Aspirin) metoprolol tartrate 25 mg tablet 25 mg PO DAILY #90 tab 03/24/20 11/08/20 Rx exenatide microspheres 2 mg/0.85 2 mg SQ Q7D #13.2 ml 04/08/20 11/08/20 Rx mL subcutaneous auto-injector ([employer]) celecoxib 200 mg capsule 200 mg PO DAILY #90 cap 08/04/20 11/08/20 Rx pantoprazole 40 mg tablet,delayed 40 mg PO DAILY #90 tab 08/30/20 11/08/20 Rx release venlafaxine 150 mg 150 mg PO DAILY #90 cap 08/30/20 11/08/20 Rx capsule,extended release 24 hr losartan 25 mg tablet 25 mg PO DAILY #90 tab 09/29/20 11/08/20 Rx pravastatin 10 mg tablet 10 mg PO DAILY #90 tab 09/29/20 11/08/20 Rx mecobalamin (vitamin B12) 5,000 5,000 mcg PO DAILY tab 10/05/20 11/08/20 History mcg disintegrating tablet metformin 500 mg tablet,extended 1,000 mg PO BID #180 tab 11/03/20 11/08/20 Rx release 24 hr ferrous sulfate 325 mg (65 mg 325 mg PO DAILY 11/08/20 11/08/20 History iron) tablet insulin aspart U-100 100 unit/mL 0 unit SQ DAILY 11/08/20 11/08/20 History subcutaneous solution (Novolog U-100 Insulin aspart) Past Med/Surg History Medical History (Updated 11/09/20 @ 07:15 by Nilesh Gardner MD) Anxiety and depression Arthritis Diabetes type 2, uncontrolled Dyslipidemia Gastroesophageal reflux disease Robin's thyroiditis Hypertension Hypothyroidism Iron deficiency anemia Multiple thyroid nodules Overweight SVT (supraventricular tachycardia) Type 2 diabetes mellitus, with long-term current use of insulin Vitamin D deficiency Surgical History History of cholecystectomy History of exploratory laparotomy History of tonsillectomy History of tubal ligation Hx of breast reduction, elective Hx of section Family History Father Cardiac disorder Cardiovascular disease Stroke Diabetes Hyperlipidemia Hypertension Mother , June 2020 d/t COVID illness Cardiovascular disease Stroke Diabetes Hyperlipidemia Hypertension Dementia Brother Hypertension Aunt Breast cancer Uncle Prostate cancer Aunt Dementia Uncle Alzheimer disease Denies family history of Ovarian cancer Colorectal cancer Social History Smoking Status: Never smoker Second Hand Exposure: No; Do You Dip or Chew Tobacco: No; Tobacco Cessation Education Requested by Patient: No Hx Alcohol Use: Yes (Very rarely) Alcohol type: wine Hx Substance Use: No Preferred Language: [place] Communication Ability: Effective Visual Impairment: No Limitations Hearing Ability: Normal Blank Driller Required: No Beliefs That Will Affect Care: None marital status: marital status details: two children Current Living Situation: Spouse current occupational status: employed current occupation: [employer] Other Information That Helps Us Care for You: No Feels Safe at Home: Yes Safety Concerns: Feels Safe At This Time Childhood Exposure to Second-Hand Smoke: No Diet Comment: regular caffeine: Yes during the past year weight has: remained stable Dental Care, Regularly: No Physical Activity Frequency: 1-2 Times per Week Seatbelt Use: always Sunscreen Use: Yes Assistive Devices: None Review of Systems Review of Systems: All systems reviewed & are unremarkable except as noted in HPI & below Genitourinary: 2 weeks of yellow vaginal discharge Chronic pruritus Physical Exam Constitutional: WD/WN, vitals as above + morbidly obese; no acute distress Eyes: + anicteric sclerae; normal pupil size ENMT: external ear and nose normal, oropharynx normal Neck: trachea midline, no thyromegaly Respiratory: normal respiratory effort, lungs clear to auscultation Cardiovascular: RRR, no murmur, no edema Gastrointestinal (Abdomen): Inspection/Auscultation: + hypoactive bowel sounds; abdomen not distended Percussion/Palpation: + abdomen tender (epigastric) and abdomen soft; no guarding and abdomen not rigid Musculoskeletal: no cyanosis or clubbing, extremities motor strength 5/5 Skin: no rashes, warm and dry Neurologic: moves all extremities and awake; no focal motor deficits and not confused Psychiatric: A+Ox3, euthymic affect Lymphatic: no cervical or axillary lymphadenopathy Results & Data Results & Data ([facility]) Vital Signs (Past 12 Hours) Vital Signs Temp Pulse Resp BP Pulse Ox 11/08/20 14:00 108 H 117/92 95 11/08/20 13:30 107 H 24 140/84 95 11/08/20 13:00 106 H 23 145/94 H 94 11/08/20 12:30 106 H 22 126/82 95 11/08/20 12:00 104 H 26 H 139/100 94 11/08/20 11:46 105 H 22 137/96 95 11/08/20 10:28 36.7 C 115 H 18 155/85 H 97 Diagnostic Findings SINGLE VIEW CHEST CLINICAL HISTORY: Atypical chest pain. FINDINGS: An AP, portable, upright chest radiograph is compared to study dated 03/19/2016 and correlated with chest CT dated 04/22/2015. The cardiomediastinal silhouette is unremarkable. There is mild bibasilar atelectasis. The lungs and pleural spaces are otherwise clear. No pneumothorax is seen. The bony thorax is grossly intact. IMPRESSION: No active disease in the chest. CHEST CTA for PULMONARY ARTERIES CT DOSE: HISTORY: Atypical chest pain. TECHNIQUE: Multiaxial CT images of the chest were performed following the intravenous administration of contrast to evaluate the pulmonary arteries. Maximal intensity projection images were also obtained. A dose lowering technique was utilized adhering to the principles of ALARA. COMPARISON STUDY: Chest CTA 04/22/2015. FINDINGS: Normal caliber thoracic aorta with no evidence for dissection. No filling defects within the pulmonary arteries to suggest a pulmonary embolus. No mediastinal or hilar lymphadenopathy. Mild thickening at the distal esophagus. Mild hepatic steatosis. The visualized spleen and adrenal glands are unremarkable. The heart is normal in size. No pleural or pericardial effusions. No suspicious lytic or blastic osseous lesions. The central airways are patent. No focal lung consolidations to suggest pneumonia. IMPRESSION: 1. No evidence for pulmonary embolus. 2. [id number] circumferential thickening of the distal esophagus. This is nonspecific but could represent an esophagitis. Consider follow-up nonemergent endoscopy for further evaluation. CT SCAN OF THE ABDOMEN AND PELVIS WITH IV CONTRAST CLINICAL HISTORY: Generalized abdominal pain. Clinical concern for colitis. COMPARISON STUDY: Abdominal CT dated 11/05/2017. TECHNIQUE: Following the IV administration of 119 cc of Optiray 320, CT scan of the abdomen and pelvis is performed from the lung bases to the proximal femora. Images are reviewed in the axial, sagittal, and coronal planes. IV contrast was administered without complication. A dose lowering technique was utilized adhering to the principles of ALARA. CT DOSE: 2400.62 mGy.cm FINDINGS: Lung bases: The heart is normal in size and without pericardial effusion. The lung bases are clear. There is a small hiatal hernia. Liver: The contrast-enhanced liver is enlarged, measuring 20.1 cm in length. The liver demonstrates diffusely diminished attenuation consistent with hepatic steatosis. There is no intrahepatic biliary ductal dilatation. The hepatic veins and portal veins are patent. Gallbladder: Surgically absent noting clips in the gallbladder fossa. Spleen: Normal in size and attenuation. Pancreas: Unremarkable. Adrenal glands: Unremarkable. Kidneys: The contrast enhanced kidneys are normal in size and without hydronephrosis. The kidneys enhance symmetrically. Abdominal vasculature: The abdominal aorta is normal in course and caliber noting mild atherosclerotic calcification. Bowel: There is laxity of the ventral abdominal wall is diastases of the rectus musculature and protrusion of bowel loops. A ventral hernia contains a tiny knuckle of nonobstructed small bowel as seen on image #284. There is no bowel obstruction. The small bowel loops are minimally distended and fluid-filled. There is also fluid within the right colon. No significant bowel wall thickening or surrounding inflammation is identified. The small bowel and colon are normal in course and caliber. The appendix is well-visualized and normal. Peritoneum: There is no intraperitoneal free air or abdominal ascites. Lymphadenopathy: None. Pelvic viscera: The bladder, uterus, and adnexa are normal as visualized noting small ovarian follicles. Numerous phleboliths are seen in the pelvis. Skeletal structures: There is mild lumbosacral spondylosis. No lytic or blastic lesions are seen. IMPRESSION: 1. There are mildly distended and fluid-filled loops of small bowel. Fluid is also seen within the right colon. This could be seen with a mild nonspecific enterocolitis and clinical correlation will be required. 2. There is no bowel wall thickening or surrounding inflammation. 3. A small ventral hernia contains a knuckle of nonobstructed small bowel. 4. Hepatomegaly and hepatic steatosis. 5. Additional findings as above. Medications Administered ER Medications Given: NSS 1L bolus ECG Indication: chest pain Rate (beats per minute): 108 Rhythm: sinus tachycardia Findings: no acute ischemic change Comparison ECG Date: from (Mar 20, 2016) Change: the following changes noted (T wave flattening in inferior and anterior leads) Code Status & VTE Plan Code Status Full VTE Prophylaxis Plan VTE Prophylaxis will be ordered: No Reason for no VTE drug order: Treatment not indicated Reason for no VTE mechanical prophylaxis: Treatment not indicated PG Care Time/CCT Total # of Minutes Spent Total Time Spent with Patient: Total time spent is greater than 50% in coordination of care (as documented) at patient's floor/unit and/or counseling patient: Coding Level of Care Code INT OBSERVATION CARE 70M LVL 3 Diagnoses Type 2 diabetes mellitus, with long-term current use of insulin E11.9; Z79.4 Ketonuria R82.4 Hypertension I10 Dyslipidemia E78.5 Gastroesophageal reflux disease K21.9 Enterocolitis K52.9 Leucocytosis D72.829 Chest pain R07.9 Esophageal thickening K22.8 Vaginal discharge N89.8
[2020-11-08 14:57] LABS: Appearance Urine Clear (Clear); Bacteria Urine Automated Negative (Negative); Bilirubin Urine Negative (Negative); Blood Urine Negative (Negative); Color Urine Yellow; Epithelial Cell Urine Auto 20-30 /lpf (0-5); Glucose Urine UA 3+ (Negative); Ketones Urine 3+ (Negative); Leukocyte Esterase Urine Trace (Negative); Nitrite Urine Negative (Negative); Protein Urine Trace (Negative); RBC Urine Automated 0-4 /hpf (0-4); Urobilinogen Urine Negative (Negative)
[2020-11-08] MEDS ORDERED: ALUMINUM/MAGNESIUM SUSP 18 ML, LIDOCAINE VISCOUS 2% SOLN 6 ML, BARCODE IDENTIFIER 1 EA PO ONE (15:10)
[2020-11-08] MEDS ORDERED: FAMOTIDINE 20 MG in SYRINGE 3 ML IV STA (15:12)
[2020-11-08] MEDS ORDERED: FAMOTIDINE 20MG/5ML IV PUSH IV ONE (15:30)
[2020-11-08] MEDS ORDERED: GI COCKTAIL ED USE PO ONE (15:30)
[2020-11-08] MEDS ORDERED: ONDANSETRON INJ 2 MG/ML 2 ML VIAL IV PRN (18:22)
[2020-11-08] MEDS ORDERED: ALUMINUM/MAGNESIUM SUSP 30 ML UDC PO PRN (18:22)
[2020-11-08] MEDS ORDERED: DEXTROSE 50% 50 ML SYRINGE IV PRN (18:22)
[2020-11-08] MEDS ORDERED: GLUCAGON FOR INJ 1 MG VIAL SQ PRN (18:22)
[2020-11-08] MEDS ORDERED: INSULIN ASPART 100 UNITS/ML 3 ML PEN SC SCH (18:22)
[2020-11-08] MEDS ORDERED: GLUCOSE 40% GEL 15 GM TUBE PO PRN (18:22)
[2020-11-08] MEDS ORDERED: GLUCOSE 10 TABS/TUBE PO PRN (18:22)
[2020-11-08] MEDS ORDERED: CARBOHYDRATES FOR HYPOGLYCEMIA PO PRN (18:22)
[2020-11-08] MEDS ORDERED: INSULIN ASPART 100 UNITS/ML VIAL SC PRN (19:30)
[2020-11-08] MEDS: ACETAMINOPHEN 325 MG TAB PO PRN (21:46)
[2020-11-08] MEDS: NovoLOG INSULIN PUMP SCH (21:47)
[2020-11-08] MEDS: LACTATED RINGER'S 1,000 ML IV SCH (21:47)
[2020-11-09 07:14] LABS: Basophils # (auto) 0.04 K/uL (0-0.2); Basophils % (auto) 0.4 %; Eosinophils # (auto) 0.02 K/uL (0-0.5); Eosinophils % (auto) 0.2 %; Hematocrit (blood only) 44.8 % (37-47); Hemoglobin 14.8 g/dL (12.0-16.0); Immature Granulocytes # (auto) 0.02 K/uL (0.00-0.02); Immature Granulocytes % (auto) 0.2 %; Lymphocytes # (auto) 1.29 K/uL (1.2-3.4); Lymphocytes % (auto) 11.4 %; Mean Corpuscular Hemoglobin 31.5 pg (25-34); Mean Corpuscular Volume 95.3 fL (80-100); Mean Platelet Volume 10.5 fL (7.4-10.4); Monocytes # (auto) 0.85 K/uL (0.11-0.59); Monocytes % (auto) 7.5 %; Neutrophils # (auto) 9.05 K/uL (1.4-6.5); Neutrophils % (auto) 80.3 %; Platelet Count 263 K/uL (130-400); RDW Standard Deviation 45.5 fL (36.4-46.3); White Blood Count 11.27 K/uL (4.8-10.8)
[2020-11-09] MEDS: ACETAMINOPHEN 325 MG TAB PO PRN (07:32)
[2020-11-09 07:38] LABS: Albumin Level 2.9 gm/dl (3.4-5.0); BUN Creatinine Ratio 12.8 (10-20); Creatinine Clr Calc Pharmacy 89.8 ml/min; Est GFR (African American) 89.4 ml/min; Est GFR (Non-African American) 77.1 ml/min; Potassium 3.6 mmol/L (3.5-5.1)
[2020-11-09 07:41] LABS: Albumin Globulin Ratio 0.6 (0.9-2); Bilirubin,Total 0.6 mg/dl (0.2-1); Globulin 4.6 gm/dl (2.5-4.0); Total Protein 7.5 gm/dl (6.4-8.2)
[2020-11-09 08:54] LABS: Estimated Average Glucose 229 mg/dl; Hemoglobin A1C 9.6 % (4.5-5.6)
[2020-11-09] MEDS: NovoLOG INSULIN PUMP SCH ×2 (08:59→12:32)
[2020-11-09] MEDS ORDERED: CeleBREX 200 MG CAP PO SCH (09:00)
[2020-11-09] MEDS ORDERED: PRAVASTATIN SOD 10 MG TAB PO SCH (09:00)
[2020-11-09] MEDS ORDERED: CHOLECALCIFEROL 1,000 UNITS 25 MCG TAB PO SCH (09:00)
[2020-11-09] MEDS ORDERED: VENLAFAXINE HCL XR 150 MG CAPXR PO SCH (09:00)
[2020-11-09] MEDS ORDERED: METOPROLOL TARTRATE 25 MG TAB PO SCH (09:00)
[2020-11-09] MEDS ORDERED: ASPIRIN 81 MG ECTAB PO SCH (09:00)
[2020-11-09] MEDS ORDERED: PANTOprazole 40 MG TAB PO SCH (09:00)
[2020-11-09] MEDS ORDERED: LOSARTAN POTASSIUM 25 MG TAB PO SCH (09:00)
[2020-11-09] MEDS ORDERED: FERROUS SULFATE 325 MG TAB PO SCH (09:00)
[2020-11-09] MEDS ORDERED: CYANOCOBALAMIN (VITAMIN B-12) 2,500 MCG TAB.SUBL SL SCH (09:00)
[2020-11-09] MEDS: LACTATED RINGER'S 1,000 ML IV SCH ×2 (09:12→09:13)
--- NOTE | 2020-11-09 15:55 | Discharge Summary ---
Date of Service November 09, 2020 Admission HPI Per Admitting Provider Hope Watts is a 55 year old female who presents to the ER with sudden onset generalized illness today with chest pain. She reports feeling well when she woke up this morning around 5:30am although she has been having worsening heartburn for the last 2 days. Current symptoms started around 8:30am while at work. She felt sick to the stomach, nauseous, vomiting, loose brown stool, "weirdness" and chest pain (although she points mainly to epigastric area). She denies any hematemesis, melena or blood in stool. No shortness of breath or loss of taste or smell. She had not eaten prior to going to work and no take out or unusual food yesterday. She is particularly concerned as she has a strong family history of cardiovascular disease with her father dying aged 66 from a heart attack but had problems since his 20s from cardiovascular disease and her mother had a stroke. Her brother has a history of pulmonary emboli. She reports having similar chest pains before but no diagnosis related to this. It is not worse on exertion. Last stress test "years ago". She has heartburn in addition but feels this chest pain is not like her usual heartburn. Heart cath - 15 years ago also for chest pain reportedly normal. She laos has ongoing palpitations although feels this is a seperate issue but never caught on monitor and not having these today. In the ER CT imaging showed thickening of her distal esophagus and findings consistent with enterocolitis. She was referred to medicine admission and ongoing management of chest pain and enterocolitis. Admission Exam Per Admitting Provider Constitutional: WD/WN, vitals as above + morbidly obese; no acute distress Eyes: + anicteric sclerae; normal pupil size ENMT: external ear and nose normal, oropharynx normal Neck: trachea midline, no thyromegaly Respiratory: normal respiratory effort, lungs clear to auscultation Cardiovascular: RRR, no murmur, no edema Gastrointestinal (Abdomen): Inspection/Auscultation: + hypoactive bowel sounds; abdomen not distended Percussion/Palpation: + abdomen tender (epigastric) and abdomen soft; no guarding and abdomen not rigid Musculoskeletal: no cyanosis or clubbing, extremities motor strength 5/5 Skin: no rashes, warm and dry Neurologic: moves all extremities and awake; no focal motor deficits and not confused Psychiatric: A+Ox3, euthymic affect Lymphatic: no cervical or axillary lymphadenopathy Principal Diagnosis Enterocolitis Esophageal Thickening Discharge Exam General: A&Ox3. NAD. Cooperative. HEENT: Atraumatic, normocephalic. Pulm: CTAB A&P. -wheezes, -rales, -rhonchi. Symmetrical chest rise. No increase work of breathing. No respiratory distress. Cardiac: RRR, -mrg. Radial pulses intact and symmetrical. Abdominal: Nontender, nondistended, soft. BS present. No guarding, no rigidity. RUE: 5/5 Elbow flexion/extension 5/5 cell maker strength, finger flexion/extension, interosseus LUE: 5/5 Elbow flexion/extension 5/5 cell maker strength, finger flexion/extension, interosseus RLE: 5/5 to hip flexion, ankle dorsiflexion/plantarflexion LLE: 5/5 to hip flexion, ankle dorsiflexion/plantarflexion SENSORY: Normal to touch in upper and lower extremities without deficit or asymmetry Discharge Data Allergies Allergy/AdvReac Type Severity Reaction Status Date / Time No Known Drug Allergies Allergy Verified 10/05/20 07:10 Consultations 11/08/20 14:27 ED Decision to Admit Stat Ordered Studies 11/08/20 13:29 CT angio chest PE protocol Stat IMPRESSION: 1. No evidence for pulmonary embolus. 2. [id number] circumferential thickening of the distal esophagus. This is nonspecific but could represent an esophagitis. Consider follow-up nonemergent endoscopy for further evaluation. 11/08/20 13:30 CT abd pelvis IV con only Stat IMPRESSION: 1. There are mildly distended and fluid-filled loops of small bowel. Fluid is also seen within the right colon. This could be seen with a mild nonspecific enterocolitis and clinical correlation will be required. 2. There is no bowel wall thickening or surrounding inflammation. 3. A small ventral hernia contains a knuckle of nonobstructed small bowel. 4. Hepatomegaly and hepatic steatosis. 5. Additional findings as above. Diabetes Follow up Diabetes Follow-up Needed for HgbA1c >9% Hospital Course (1) Enterocolitis: Hope is a 55yo F who presented with diarrhea and chest pain and who was found to have enterocolitis with clinical improvement overnight. To Do As Outpatient: 1. Repeat CBC to follow for normalization 2. Outpatient EGD for esophageal thickening, chronic GERD 3. Elective followup for ventral hernia Enterocolitis - Diarrhea improved with supportive care overnight - no indication for antibiotics - Sodium, potassium, creatinine normal on discharge - WBC slightly elevated suspect 2/2 demargination, downtrended. 11.27 on discharge. - CT-Ab: There are mildly distended and fluid-filled loops of small bowel. Fluid is also seen within the right colon. This could be seen with a mild nonspecific enterocolitis and clinical correlation will be required. There is no bowel wall thickening or surrounding inflammation. A small ventral hernia contains a knuckle of nonobstructed small bowel. Hepatomegaly and hepatic steatosis. (2) Leucocytosis: - Suspect from vomiting and enterocolitis as above. - Repeat CBC in AM. Patient is not septic, no antibiotics prescribed - BMs improved, course not consistent with c diff (3) Esophageal thickening: - Follow up EGD as outpatient - Treatment for GERD as below (4) Gastroesophageal reflux disease: - Continue pantoprazole 40mg PO daily - Famotidine 10mg BID PRN at home for reflux - EGD as above (5) Chest pain: - Serial troponins negative - No arrythmia on tele - Deferred dobutamine stress echo as this was previously abnormal with a normal cardiac catheterization therefore likeliness of another false positive test high given low likelihood pain is cardiac related. - Suspect related to her GERD as above (6) Vaginal discharge: 2 weeks yellow vaginal discharge. Swab ordered for culture. Possible bacterial vaginosis. Swab not collected by time of d/c, pt expressed preference to f/u with PCP rather than have drawn prior to d.c (7) Ketonuria: 1L NSS bolus given in ER, resolved (8) Type 2 diabetes mellitus, with long-term current use of insulin: - Patient to manage her own glucose with insulin pump. BSG ACHS. - BSG mid 100's during admit - Repeat A1C 9.6% - Recommend f/u and intensification of insulin regimen as outpatient (9) Hypertension: Continued her usual medications with metoprolol tartrate 25mg PO daily, losartan 25mg PO daily, adequate control during admission (10) Dyslipidemia: Continued pravastatin 10mg PO daily Total Time Total Time Spent Total Time Spent (In Minutes): Time spent preparing discharge including documentation, review of labs/images, and direct care ~31 minutes Discharge Plan Discharge Items Patient Disposition: Home - Self-Care Reason For Visit: CHEST PAIN RULE OUT NV, ENTEROCOLITIS Discharge Diagnosis: Enterocolitis, GI illness Activity: Resume your previous activity Non-emergency contact: Primary Care Provider Call non-emergency contact if: you have any medication questions, your symptoms worsen, your pain is not controlled, your pain is worsening and your pain is unusual for you Follow-up/Referrals: Leslee Metz DO [Primary Care Provider] - Diet: Carb Consistent or DM2 Addtl Attending Provider Instructions: You were seen in the hospital for an acute illness with diarrhea and concern for chest pain. And evaluation of your heart did not show evidence of a heart attack, and your troponin (blood markers for heart damage ) were negative x3. You also had a recent normal cardiac catheterization which lower the likelihood of cardiac related pain. Your symptoms greatly improved overnight, and your imaging was consistent with a GI illness (enterocolitis) and you felt nearly ba ck to baseline no recurrent chest pain at time of discharge. Your CT scan was consistent with a GI illness, which can be viral. Your CT scan did show evidence of esophageal thickening. While this did not affect your course of hospital treatment, you will require additional follow-up for this and should have a procedure called a endoscopy in several weeks as an outpatient. Please discuss scheduling this procedure with your primary care physician at your follow-up appointment. Your white blood cell count was slightly elevated, but downtrending and returning to normal at time of discharge. This can be elevated by vomiting and GI illness, please discuss a follow-up blood count as an outpatient to ensure this returns completely to normal as an outpatient. Your CT scan also showed a small ventral hernia. There was no signs of dangerous incarceration, this hernia may be electively followed up as an outpatient with your primary care physician/with a referral to general surgery however this was not required at time of hospitalization. You have not been prescribed any antibiotics. Please continue to take Protonix 40 mg daily. You may additionally take famotidine 10 mg twice daily for reflux related symptoms, this medication may be found [id number] at most pharmacies. You had experienced some vaginal discharge. This can be due to bacterial overgrowth called bacterial vaginosis, a swab for culture was ordered but was not able to be collected prior to discharge. Please discuss the symptoms if they continue to persist with your primary care physician who may wish to order additional tests. A followup appointment is being scheduled for you with Dr. Metz. You should be seen seen within 1-2 weeks. You should receive a call to confirm this appointment. If you do not receive a call within 48 hours to confirm this appointment, or need to change this appointment, please call the provider's office at [phone]. If you develop any new or worsening symptoms including fever, chills, sweats, chest pain, chest pressure, difficulty breathing, uncontrolled nausea/vomiting, rash, wheezing, passing out or nearly passing out, bleeding, black/bloody bowel movements, or other new or concerning symptoms please call your primary care physician at [phone], or call 911 for re-evaluation in the emergency department if you are very concerned. Pending Studies at Discharge: No Stand-Alone Forms: [facility], Smoking Cessation Medications and DC Order Prescriptions: Continued cholecalciferol (vitamin D3) 2,000 unit tablet 2,000 units PO DAILY Qty: 30 RF: 0 metoprolol tartrate 25 mg tablet 25 mg PO DAILY Qty: 90 RF: 1 Bydureon BCise 2 mg/0.85 mL auto-injector 2 mg SQ Q7D Qty: 13.2 RF: 3 celecoxib 200 mg capsule 200 mg PO DAILY Qty: 90 RF: 1 pantoprazole 40 mg tablet,delayed release (DR/EC) 40 mg PO DAILY Qty: 90 RF: 1 venlafaxine 150 mg capsule,extended release 24hr 150 mg PO DAILY Qty: 90 RF: 1 pravastatin 10 mg tablet 10 mg PO DAILY Qty: 90 RF: 1 losartan 25 mg tablet 25 mg PO DAILY Qty: 90 RF: 2 metformin 500 mg tablet extended release 24 hr 1,000 mg PO BID Qty: 180 RF: 1 aspirin [Adult Low Dose Aspirin] 81 mg tablet,delayed release (DR/EC) 81 mg PO DAILY Qty: 30 RF: 2 mecobalamin (vitamin B12) 5,000 mcg tablet,disintegrating 5,000 mcg PO DAILY RF: 0 insulin aspart U-100 [Novolog U-100 Insulin aspart] 100 unit/mL solution 0 unit SQ DAILY RF: 0 ferrous sulfate 325 mg (65 mg iron) tablet 325 mg PO DAILY RF: 0 Discharge Orders: Discharge Order (Routine); Ordered 11/09/20 Ordered By: Milan Ramos Admission Data Admit Date/Time: 11/08/20 15:25 Attending Provider: Milan Ramos Admit Provider: Nilesh Gardner Primary Care Provider: Leslee Metz Other Providers: Nilesh Gardner Other Interventions: Discharge Summary Assessment (RN) Last Done: 11/09/20 12:12 Coding Level of Care Code D/C DAY MANAGEMENT >30 MINS Diagnoses Enterocolitis K52.9 Leucocytosis D72.829 Esophageal thickening K22.8 Gastroesophageal reflux disease K21.9 Chest pain R07.9 Vaginal discharge N89.8 Ketonuria R82.4 Type 2 diabetes mellitus, with long-term current use of insulin E11.9; Z79.4 Hypertension I10 Dyslipidemia E78.5
--- NOTE | 2020-11-10 05:52 | Electrocardiogram Report ---
Test Reason : Blood Pressure : / mmHG Vent. Rate : 108 BPM Atrial Rate : 108 BPM P-R Int : 130 ms QRS Dur : 080 ms QT Int : 350 ms P-R-T Axes : 051 046 035 degrees QTc Int : 469 ms Sinus tachycardia Otherwise normal ECG When compared with ECG of 20-MAR-2016 07:05, Vent. rate has increased BY 52 BPM Confirmed by Keith Brown ([id number]) on 11/10/2020 5:52:45 AM Referred By: Confirmed By:Keith Brown
== END 2020-11-09 12:52 | disposition home or self-care (01) ==
LOC: ED 10:15 → 2W 10:15 → SUATTDRO 15:25 → 2W 15:46